=== PATIENT | male | born 1965 | race Caucasian/White ===

== ENCOUNTER 2021-05-05 10:06 | Outpatient (REF) | payer BC, SELFPAY ==
[2021-05-05 11:51] LABS: Alanine Aminotransferase 22 U/L (0-40); Albumin Level 4.2 g/dL (3.5-5.0); Alkaline Phosphatase 77 U/L (39-117); Anion Gap 17 (12-20); Aspartate Amino Transferase 36 U/L (5-37); Bilirubin Total 0.5 mg/dL (0.0-1.0); Blood Urea Nitrogen 10 mg/dL (9-16); Calcium 9.4 mg/dL (8.4-10.2); Carbon Dioxide 21 mmol/L (22-29); Chloride 106 mmol/L (96-108); Cholesterol 194 mg/dL; Estimated Glomerular Filt Rate > 60; Glucose Fasting 81 mg/dL (60-99); HDL Cholesterol 84 mg/dL; LDL Cholesterol Calculated 97 mg/dl; Potassium 4.6 mmol/L (3.3-5.1); Sodium 139 mmol/L (135-145); Total Protein 7.5 g/dL (6.5-8.0); Triglycerides 68 mg/dL
[2021-05-05 12:13] LABS: Prostate Specific Antigen Scr 1.75 ng/mL (<0.05-4.0); TSH reflex Free T4 1.29 uIU/mL (0.32-4.0)
== END 2021-05-05 10:07 | disposition home or self-care (01) ==
LOC: HO.HMGCLDS 10:06
PROVIDERS: PCP Nurse Practitioner Family; Visit Provider Nurse Practitioner Family
DX: S84.10XA Injury of peroneal nerve at lower leg level, unspecified leg, initial encounter (principal); Z12.5 Encounter for screening for malignant neoplasm of prostate
CPT/HCPCS: 36415; 80053; 80061; 84153; 84443

== ENCOUNTER 2021-11-17 10:42 | Outpatient (REF) | payer BC, SELFPAY ==
[2021-11-17 14:24] LABS: Alanine Aminotransferase 18 U/L (0-40); Albumin Level 4.2 g/dL (3.5-5.0); Alkaline Phosphatase 62 U/L (39-117); Anion Gap 14 (12-20); Aspartate Amino Transferase 25 U/L (5-37); Bilirubin Total 0.3 mg/dL (0.0-1.0); Blood Urea Nitrogen 11 mg/dL (9-16); Calcium 9.3 mg/dL (8.4-10.2); Carbon Dioxide 25 mmol/L (22-29); Chloride 104 mmol/L (96-108); Estimated Glomerular Filt Rate > 60; Glucose Random 85 mg/dL (60-115); Potassium 3.8 mmol/L (3.3-5.1); Sodium 139 mmol/L (135-145); Total Protein 7.5 g/dL (6.5-8.0)
== END 2021-11-17 10:43 | disposition home or self-care (01) ==
LOC: HO.HMGCLDS 10:42
PROVIDERS: PCP Nurse Practitioner Family; Visit Provider Nurse Practitioner Family
DX: R10.31 Right lower quadrant pain (principal)
CPT/HCPCS: 36415; 80053

== ENCOUNTER 2021-12-13 07:13 | Outpatient (REF) | payer BC, SELFPAY ==
--- NOTE | ~2021-12-13 | CT_ITS ---
EXAMINATION: CT ABDOMEN AND PELVIS WITH CONTRAST CLINICAL INFORMATION: Right lower quadrant pain COMPARISON: None TECHNIQUE: Multidetector volumetric images were obtained from the superior aspect of the liver through the pubic symphysis following administration 85 mL of Omnipaque 350 intravenous contrast. Sagittal and coronal reformatted images were obtained on the technologist's workstation. Oral contrast: Yes This CT examination was performed using dose optimization techniques as appropriate, variously including the following: *Automated exposure control *Adjustment of mA and/or kV according to patient size (this includes techniques or standardized protocols for targeted exams where dose is matched to indication/reason for exam; i.e. extremities or head) *Use of iterative reconstruction technique DLP: 330 mGy-cm FINDINGS: LUNG BASES: There are emphysematous changes at the lung bases. LIVER, GALLBLADDER, AND BILIARY TREE: The liver is normal in size, shape, and attenuation. No focal hepatic lesion or biliary ductal dilatation is present. The gallbladder is unremarkable with no evidence of radiopaque gallstones, gallbladder wall thickening, or obvious pericholecystic inflammatory changes. PANCREAS: Unremarkable. SPLEEN: Unremarkable. ADRENAL GLANDS: Unremarkable. KIDNEYS AND URETERS: The kidneys are normal in size, shape, and attenuation. No hydronephrosis, hydroureter, or calculi seen. No perinephric stranding. BLADDER: Unremarkable. GASTROINTESTINAL TRACT: There is stool throughout the colon questionable for constipation. There is mild diverticulosis of the colon. No evidence of diverticulitis is seen. Small and large bowel is otherwise unremarkable. The appendix is normal. ABDOMINAL WALL: Small right inguinal hernia containing fat.. LYMPH NODES: Normal. VASCULAR: There is atherosclerotic disease. There is a left common iliac artery stent. PELVIC VISCERA: Unremarkable. OSSEOUS STRUCTURES: There are degenerative changes of the spine and mild scoliosis. CT/CT abdomen pelvis w con IMPRESSION: Stool throughout the colon questionable for constipation. Diverticulosis. No evidence of diverticulitis. Normal appendix. Small right inguinal hernia containing fat. Fleischner guidelines were followed.
[2021-12-13] MEDS: iohexoL 350 MG/ML 100 ML INFUS..BTL IV (09:54)
[2021-12-13] MEDS: Barium Sulfate Oral (Vanilla) 450 ML ORAL.SUSP 900 ML PO (09:54)
== END 2021-12-13 07:14 | disposition home or self-care (01) ==
LOC: HO.CT 07:13
PROVIDERS: PCP Nurse Practitioner Family; Visit Provider Nurse Practitioner Family
DX: R10.31 Right lower quadrant pain (principal)
CPT/HCPCS: 74177; Q9967

== ENCOUNTER → 2021-12-15 10:07 | Outpatient (BNVA) | payer BC, SELFPAY | PROVIDERS: PCP Nurse Practitioner Family; Referring Provider Nurse Practitioner Family; Visit Provider Surgery ==

== ENCOUNTER 2022-01-08 06:56 | Day surgery (SDC) | payer BC, SELFPAY ==
[2022-01-08] VITALS (8 sets, daily range): BP systolic 115–144; BP diastolic 63–81; PULSE 60–73; RESP 16–20; TEMP 36.4–36.6; O2SAT 94–97; BMI 27.1
--- NOTE | 2022-01-08 08:01 | P.CONAN_ITS ---
[facility] Active Problems Active Problems: All Active Problems (Updated 01/08/22 @ 07:06 by Leonor Leslie RN) Peroneal nerve injury (Acute) Screening PSA (prostate specific antigen) (Acute) Right inguinal hernia (Acute) Right inguinal pain (Acute) Family hx of colon cancer (Acute) Past Medical History Medical History Claudication History of neuropathy HTN (hypertension) Nerve damage of left foot Smoker Stenosis of artery of left lower extremity Family History Family History Father Hypertension Lung cancer Mother No problems noted. Surgical History Surgical History Hx of colonoscopy S/P arterial stent History of Problems with Anesthesia: No Social History Social History Housing: House Alcohol intake: current Alcohol intake frequency: a few times a week Patient Tobacco Use Status: Current everyday Tobacco user Tobacco use type: Cigarette Cigarette Packs Per Day: 1 Cigarettes Per Day: 20.0 Years Smoked: 16 years old e-Cigarette/Vaping Use: Never Used Use of substances other than those prescribed or required for medical reasons: Yes Substance Use Frequency: Occasionally Are you DNR?: No Advance Directives: No Advance Directives Information Provided: Yes service: No Current occupational status: employed Meds Allergies Allergy/AdvReac Type Severity Reaction Status Date / Time amoxicillin [AMOXICILLIN] Allergy Unknown ITCH, Verified 01/08/22 07:03 RASH, Rash, Rash Active Medications: Current Medications Lactated Ringer's (Lr) 1,000 mls @ 100 mls/hr IVCONT .Q10H [facility] Exam Exam Date and Time: January 08, 2022 0801 Height,Weight and Vital Signs: Height 5 ft 5 in Weight 73.936 kg Last Vital Signs Temp 97.8 F 01/08/22 06:50 Pulse 60 01/08/22 06:50 Resp 16 01/08/22 06:50 BP 144/81 H 01/08/22 06:50 Pulse Ox 97 01/08/22 06:50 Airway Mallampati Class: II TM Dist: >3cm Neck ROM: Full Loose/Missing/Broken Teeth: No Heart: RRR Lungs: CTA Assessment and Plan Assessment Anesthesia Assessment: Anesthesia Plan Discussed and Chart Reviewed Final Anesthetic Review History of Problems with Anesthesia: No NPO: Yes ASA Class: II Final Preanesthetic Review: Meds/Allgs Chart Reviewed, Consent Obtained/Reviewed and Anes Risks/Benef Reviewed Patient Risk: Low Procedure Risk: Low Anesthetic Plan Anesthetic Plan: GA Disposition: Standard PACU
[2022-01-08] MEDS: Lactated Ringers 1,000 ML 100 ML IVCONT (08:30)
--- NOTE | 2022-01-08 08:30 | MHC.SHP ---
Pre-Procedural Eval Section A Date of Service: 01/08/22 The patient is an INPATIENT: No Changes since office visit: Yes Patient answered all questions; No Cold of Flu in the past 2 weeks, No New Medical Problems and No Changes in Medication The History & Physical has been completed within 30 days and I have reviewed it.: Yes Section B Chief Complaint: Right inguinal Hernia Allergies: Allergies Allergy/AdvReac Type Severity Reaction Status Date / Time amoxicillin [AMOXICILLIN] Allergy Unknown ITCH, Verified 01/08/22 07:03 RASH, Rash, Rash Plan Diagnosis/Plan: Unchanged I have reviewed the history and physical and performed a pertinent physical examination on my patient. No changes have occurred unless specified.
--- NOTE | 2022-01-08 09:41 | P.OP_ITS ---
Operative Note Operative Note Date of Service: 01/08/22 Narrative: Preoperative diagnosis: Rightinguinal hernia Postoperative diagnosis: Same Procedure: Repair of rightinguinal hernia Surgeon: Steve Alvarez MD Certified Wellness Program Coordinator: Radha Sadler PA-C Anesthesia: General LMA Indications for procedure: 56-year-old male patient presenting with a palpable lump in the right groin which increases with lifting and straining and reduces with light pressure. On examination patient is found to have a right inguinal hernia. Operative findings:. Patient found to have a direct right inguinal hernia repaired with a large PHS mesh Specimen: None Estimated blood loss: 5 mL Complications: None Procedure details: Patient was brought to the OR and placed in a supine position. After administering general anesthesia the patient's abdomen was prepped with ChloraPrep and draped in a sterile fashion. A surgical time-out was called the consent confirmed. Patient received preoperative antibiotics and Venodyne boots were in place. Local anesthesia consisting of 0.5% Sensorcaine with epinephrine was infiltrated over the right inguinal ligament. Incision was then made in oblique fashion over the inguinal ligament. This carried out through subcutaneous tissue past Carol's fashion up to the external oblique aponeurosis. Additional local was infiltrated below the external oblique aponeurosis. This was then incised with a scalpel wide with the Metzenbaum scissors. Spermatic cord was then dissected free from the surrounding inguinal canal and retracted using a Perry drain. The floor of the inguinal canal was examined and a large direct hernia was identified. Fibers of the cremasteric muscle were then and no indirect sac was identified. Attention was then directed to the direct space which was divided between Allis clamps. The preperitoneal space was then created. This was opened further using an open Ray-Dana sponge. A large PHS mesh was then obtained. The circular underlay was placed into the preperitoneal space and deployed. The overlay was then secured to the pubic tubercle conjoined tendon shelving edge of the inguinal ligament using interrupted 0 Polysorb sutures. A slit was made in the mesh and the mesh were wrapped around the spermatic cord at the internal ring. This was then secured to the shelving edge of the inguinal ligament using the 0 Polysorb suture. This was felt to be loose enough to allow the tip of an index finger to pass. Wounds were checked for hemostasis. Wounds were irrigated with saline solution and suctioned dry. External oblique aponeurosis was then closed using a running 2 0 Polysorb suture . Carol's fascia and dermis reapproximated using interrupted 3-0 Polysorb sutures. Skin was then closed using a running subcuticular 4-0 Polysorb suture. Steri-Strips 2 x 2 gauze and Tegaderm were then applied. The patient tolerated the procedure well. Sponge, instrument, needle counts reported as correct. Patient was transferred to PACU in stable condition.
[2022-01-08] MEDS: Acetaminophen 325 MG TABLET 650 MG PO (11:24)
[2022-01-08] MEDS: oxyCODONE HCl Immed Release 5 MG TABLET PO (11:25)
== END 2022-01-08 12:01 | disposition home or self-care (01) ==
PROVIDERS: PCP Nurse Practitioner Family; Visit Provider Surgery
PROC: (CPT 49505; principal; 2022-01-08 08:40)
DX: K40.90 Unilateral inguinal hernia, without obstruction or gangrene, not specified as recurrent (principal); I10 Essential (primary) hypertension; I73.9 Peripheral vascular disease, unspecified; Z79.899 Other long term (current) drug therapy; Z88.0 Allergy status to penicillin; F17.210 Nicotine dependence, cigarettes, uncomplicated
CPT/HCPCS: 49505; C1781; J0690; J1100; J2250; J2405; J3010

== ENCOUNTER → 2022-02-15 11:12 | Outpatient (BNVA) | payer BC, SELFPAY | PROVIDERS: PCP Nurse Practitioner Family; Referring Provider Nurse Practitioner Family; Visit Provider Surgery | DX: Z13.89 Encounter for screening for other disorder (principal) ==

== ENCOUNTER → 2023-06-12 10:58 | Outpatient (REF) | payer BC, SELFPAY ==
--- NOTE | 2023-06-12 11:01 | CA_ITS ---
Transthoracic Echocardiogram Patient (Last, First, Middle): Dustin Silva, Gender: Male Date of : 1965 Age: 58 Procedure Date: 06/12/2023 Procedure Type: Transthoracic Echocardiogram Location: OP Height: 165.1 cm Weight: 65.77 kg BSA: 1.73 m2 Heart Rate: bpm BP: 122 / 70 mmHg Chart Changer: Referring MD: Steve Gaffney [facility] Biology Lecturer: Daren Villalobos MD Symptoms: I45.10 - Unspecified right bundle-branch block Study Quality: Good ECG Rhythm: Sinus Conclusions: - Normal study Findings Left Ventricle Normal left ventricular size, thickness, and systolic function. The visually estimated ejection fraction is between 60-65%. Spectral Doppler is indicative of a normal filling pattern. Peak GLS is -21.3%, within normal limits. Right Ventricle Normal right ventricular cavity size and systolic function. Atria Both atria are normal in size. There is lipomatous hypertrophy of the interatrial septum. There is no evidence of interatrial shunt. Aortic Valve Normal aortic valve structure and function. There is no aortic valve stenosis. There is no aortic valve regurgitation. Mitral Valve Normal mitral valve structure and function. There is trace mitral valve regurgitation. There is no mitral valve stenosis. Pulmonic Valve The pulmonic valve is likely normal. There is trace pulmonic valve regurgitation. Tricuspid Valve Normal tricuspid valve structure. There is trace tricuspid valve regurgitation. The right ventricular systolic pressure is normal. The right ventricular systolic pressure is 23 mmHg. Normal right atrial pressure. There is no evidence of pulmonary hypertension. Great Vessels All visible segments of the aorta are normal in size. The visualized portions of the pulmonary artery and branches are normal. Venous The inferior vena cava is normal in size and collapses greater than 50% with inspiration. Pericardium/Pleural There is no evidence of pericardial effusion. Prior Study Comparison No prior study available for comparison. Measurements 2D Linear Measurements IVSd: 1.00 0.6-0.9/0.6-1.0 cm LVIDd: 4.60 3.9-5.3/4.2-5.9 cm LVIDd Index: 2.66 2.4-3.2/2.2-3.1 cm/m2 LVIDs: 2.90 2.0-3.6 cm LVPWd: 1.00 0.7-1.1 cm Ao Root: 3.20 2.1-3.5 cm LA Diam: 3.90 2.7-3.8/3.0-4.0 cm LAIDs Index: 2.25 1.5-2.3 cm/m2 LV Mass: 197.77 67-162/88-224 g LV Mass Index: 114.32 43-95/49-115 g/m2 LVOT Diam: 2.10 3.0+(-)1.3 cm Mitral Valve MV Pk E: 1.05 MV PK A: 0.85 MV Decel Time: 165.00 E/A: 1.20 E'Lateral: 10.30 E'Medial: 7.29 E/E' Med: 14.40 E/E' Lat: 10.20 PHT: 48.00 MVA PHT: 4.58 Decel [place]: 6.35 Aortic Valve AoV Pk Ricardo: 1.46 AoV Mn Ricardo: 0.94 AoV VTI: 0.35 AoV Pk Grad: 9.00 Aov Mn Grad: 4.00 FELIPE Cont.VTI: 2.30 LVOT LVOT Pk Ricardo: 0.97 LVOT Mn Ricardo: 0.55 LVOT VTI: 0.23 LVOT Pk Grad: 4.00 LVOT Mn Grad: 2.00 LVOT Diam: 2.10 LVOT Area: 3.46 Diastolic Function MV Pk E: 1.05 MV Pk A: 0.85 E/A: 1.20 E'Medial: 7.29 E/E' Med: 14.40 E' Laterial: 10.30 E/E' Lat: 10.20 Right Ventricle TAPSE (mm): 27.00 TVS' Ricardo: 14.00 Tricuspid Valve TR Pk Ricardo: 2.25 TR Pk Grad: 20.00 RA Press: 3.00 RVSP: 23.00 Great Vessels Aorta Ao Root-2D: 3.20 2.0-3.7 cm Pulmonary Valve PV Pk Ricardo: 0.94 Peak PV Grad: 4.00 Updated in Other Vendor System with Status of Final Daren Villalobos MD electronically signed on 06/12/2023 2:06:59 PM with status of Final
== END ==
LOC: HO.CARD 10:58
PROVIDERS: PCP Nurse Practitioner Family; Visit Provider Nurse Practitioner Family
DX: I45.10 Unspecified right bundle-branch block (principal); F17.200 Nicotine dependence, unspecified, uncomplicated; R93.1 Abnormal findings on diagnostic imaging of heart and coronary circulation
CPT/HCPCS: 93306; 93356

== ENCOUNTER → 2023-06-12 11:01 | Outpatient (BNV) | payer BC, SELFPAY | PROVIDERS: PCP Nurse Practitioner Family; Visit Provider Internal Medicine Cardiovascular Disease | DX: I45.10 Unspecified right bundle-branch block (principal) | CPT/HCPCS: 93306 ==

== ENCOUNTER 2023-07-25 10:48 | Outpatient (REF) | payer BC, SELFPAY ==
[2023-07-25 13:09] LABS: MANUAL DIFF FLAG NO
[2023-07-25 13:21] LABS: Basophils Percent Auto 0.3 % (0-2); Eosinophils Absolute Auto 0.3 X10*3/uL (0.0-0.4); Eosinophils Percent Auto 3.1 % (0-4); Hematocrit 42.8 % (42.0-52.0); Hemoglobin 14.5 g/dl (14.0-18.0); Imm Gran Abs Auto 0.05 X10*3/uL (0.00-0.03); Imm Gran Pct Auto 0.5 % (0.0-0.4); Lymphocytes Absolute Auto 4.4 X10*3/uL (1.2-4.9); Lymphocytes Percent Auto 40.7 % (20-40); Mean Corpuscular HGB Conc 33.9 g/dl (31.0-36.0); Mean Corpuscular Hemoglobin 33.9 pg (27.0-33.0); Mean Platelet Volume 9.6 fL (9.4-12.4); Monocytes Absolute Auto 0.8 X10*3/uL (0.1-1.2); Monocytes Percent Auto 7.2 % (2-11); Neutrophils Absolute Auto 5.2 x10*3/uL (2.0-8.3); Neutrophils Percent Auto 48.2 % (45-73); Platelet Count 232 X10*3/uL (160-400); Red Blood Count 4.28 X10*6/uL (4.60-5.80); Red Cell Distribution Width 14.6 % (11.0-16.0); White Blood Count 10.8 X10*3/uL (4.8-10.8)
[2023-07-25 13:40] LABS: Alanine Aminotransferase 15 U/L (0-40); Alkaline Phosphatase 71 U/L (39-117); Anion Gap 15 (12-20); Aspartate Amino Transferase 23 U/L (5-37); Bilirubin Total 0.5 mg/dL (0.0-1.0); Blood Urea Nitrogen 11 mg/dL (9-16); Calcium 9.5 mg/dL (8.4-10.2); Carbon Dioxide 26 mmol/L (22-29); Chloride 103 mmol/L (96-108); Cholesterol 192 mg/dL (<200); Estimated Glomerular Filt Rate > 60; Glucose Fasting 99 mg/dL (60-99); HDL Cholesterol 79 mg/dL (>40); LDL Cholesterol Calculated 102 mg/dL (<100); Potassium 4.9 mmol/L (3.3-5.1); Sodium 139 mmol/L (135-145); Total Protein 7.8 g/dL (6.5-8.0); Triglycerides 57 mg/dL (<150)
[2023-07-25 13:48] LABS: TSH reflex Free T4 1.32 uIU/mL (0.32-4.0)
[2023-07-25 13:54] LABS: Appearance Urine Clear; Color Urine Yellow; Glucose Urine UA Negative (Negative); Leukocyte Esterase Urine Negative (Negative); Nitrite Urine Negative (Negative); PH 7.5 (5.0-9.0); Specific Gravity - Urine 1.015 (1.005-1.025); Urine Blood Negative (Negative); Urine Ketones Negative (Negative); Urine Protein Negative (Neg-Trace)
[2023-07-25 13:57] LABS: Prostate Specific Antigen Scr 1.63 ng/mL (<0.05-4.0)
== END 2023-07-25 10:49 | disposition home or self-care (01) ==
LOC: HO.HMGCLDS 10:48
PROVIDERS: PCP Nurse Practitioner Family; Visit Provider Nurse Practitioner Family
DX: Z00.00 Encounter for general adult medical examination without abnormal findings (principal); Z12.5 Encounter for screening for malignant neoplasm of prostate; I10 Essential (primary) hypertension
CPT/HCPCS: 36415; 80053; 80061; 81003; 84153; 84443; 85025

== ENCOUNTER 2023-08-30 13:48 | Outpatient (AMB) | payer BC, SELFPAY ==
--- NOTE | 2023-07-05 08:11 | A.OFFVIS_ITS ---
Intake Intake Visit Reasons: LDCT SD Allergies amoxicillin [AMOXICILLIN] Allergy (Unknown, Verified 05/08/23 11:07) ITCH, RASH, Rash, Rash HPI LDCT SD HPI Details Initial visit for this 58yo smoker with a 40PYH. Patient has been smoking since age 16 for 42 years at 1ppd. . Denies marijuana use. Denies second hand smoke exposure. Denies exposure to chemicals or substances like asbestos. . Denies known family history of lung cancer. Denies personal history of cancers. Denies chest CT in last year. . Denies recent travel outside the [place]. Denies recent respiratory illness or recent hospitalization for respiratory issues. Denies testing positive for COVID. Admits receiving COVID Vaccine. Brand:[] Location: [] Date: [] . Denies fever, chills, new/worsening cough, hemoptysis, hoarseness or dysphagia. Denies significant chest pain, significant dyspnea or unintentional weight loss. Patient Lung Cancer Screening Questionnaire reviewed with patient by provider. . Shared Decision Making Completed. Patient meets criteria. Discussed in detail with patient, the risk vs benefit of LDCT screening. Patient consents to proceed with scan. Discussed smoking cessation. [facility] Medical History (Updated 06/07/23 @ 12:08 by Diana Diaz PA-C) Claudication History of neuropathy HTN (hypertension) Nerve damage of left foot Nicotine dependence, cigarettes, uncomplicated Stenosis of artery of left lower extremity Tubular adenoma of colon Surgical History (Updated 06/06/23 @ 14:03 by Diana Diaz PA-C) History of colonoscopy History of right inguinal hernia repair S/P arterial stent Family History Father Hypertension Lung cancer Mother No problems noted. Social History Housing: House Alcohol intake: current Alcohol intake frequency: a few times a week Patient Tobacco Use Status: Current everyday Tobacco user Tobacco use type: Cigarette Cigarette Packs Per Day: 1 Cigarettes Per Day: 20.0 Years Smoked: 16 years old e-Cigarette/Vaping Use: Never Used service: No Current occupational status: employed Current occupational exposures/hazards: No Cognitive needs: No Hearing needs: No Vision needs: Yes Assessment & Plan Assessment & Plan (1) Nicotine dependence, cigarettes, uncomplicated: Comment: (current smoker, onset 16yo, 1ppd x 42yrs, 40pyh) ? lung ca in dad Code(s): F17.210 - Nicotine dependence, cigarettes, uncomplicated Plan: - SDM visit completed today in office. - Patient meets criteria for LDCT for lung cancer screening purposes and is asymptomatic. - Smoking cessation counseling offered. Patients can always call [phone]. - Will arrange for a LDCT scan of the chest for screening purposes at [facility]. - Risks, benefits, and alternatives were discussed in detail and the patient agrees to proceed. - Risks discussed include but are not limited to: radiation exposure, anxiety during testing and while awaiting results, false negatives, false positives and possibility of additional intervention such as further imaging or surgical procedures for benign disease. - Benefits are obviously detection of lung cancer at an early stage which can lead to improved outcomes. - Discussed the importance of screening program compliance with adherence to yearly LDCT scan as scheduled - or sooner interval scans for personalized scr eening regimen. - Discussed follow up plan. Our office will send a letter discussing results and if needed set up phone call and office visit based on CT findings. - Patient educated on results categorization and the management decisions for suspicious findings potentially found on the screening LDCT scan. Any patient with a Lung RADS score of 3 or 4 will be reviewed by a multidisciplinary team at [facility] to form a plan of action in regards to scan findings. - If further work up is warranted for a suspicious lung finding this will be followed by the Lung Cancer Screening program in conjunction with the Thoracic Surgery Department at [facility]. - A copy of the office note and LDCT will be sent to the patient's PCP - as well as documentation on any associated further plans of care. - Incidental findings on LDCT are the PCP's responsibility. These findings are indicated with an S finding on the LDCT Assessment. A note discussing the findings will be sent to the PCP who is then responsible for further management. - All questions answered.? Coding Level of Care Code Lung Cancer Screening G0296 Diagnoses Nicotine dependence, cigarettes, uncomplicated F17.210
--- NOTE | 2023-08-30 07:44 | MHC.OFFVIS ---
Intake Intake Visit Reasons: LDCT SD Allergies amoxicillin [AMOXICILLIN] Allergy (Unknown, Verified 05/08/23 11:07) ITCH, RASH, Rash, Rash HPI LDCT SD HPI Details Initial visit for this 58yo smoker with a 40PYH. Patient has been smoking since age 16 for 42 years at 1ppd. . Reports social marijuana use. Denies second hand smoke exposure. Denies exposure to chemicals or substances like asbestos. . Reports family history of lung cancer. Dad at 82 and brother at 67. Denies personal history of cancers. Denies chest CT in last year. . Denies recent travel outside the [place]. Denies recent respiratory illness or recent hospitalization for respiratory issues. Denies testing positive for COVID. Denies receiving COVID Vaccine. . Denies fever, chills, new/worsening cough, hemoptysis, hoarseness or dysphagia. Denies significant chest pain, significant dyspnea or unintentional weight loss. Patient Lung Cancer Screening Questionnaire reviewed with patient by provider. . Shared Decision Making Completed. Patient meets criteria. Discussed in detail with patient, the risk vs benefit of LDCT screening. Patient consents to proceed with scan. Discussed smoking cessation. 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 Brother Lung cancer Social History Housing: House Alcohol intake: current Alcohol intake frequency: a few times a week Patient Tobacco Use Status: Current everyday Tobacco user Tobacco use type: Cigarette Cigarette Packs Per Day: 1 Cigarettes Per Day: 20.0 Years Smoked: onset 16yo, 1ppd x 42yrs, 40pyh e-Cigarette/Vaping Use: Never Used service: No Current occupational status: employed Current occupational exposures/hazards: No Cognitive needs: No Hearing needs: No Vision needs: Yes Assessment & Plan Assessment & Plan (1) Nicotine dependence, cigarettes, uncomplicated: Comment: (current smoker, onset 16yo, 1ppd x 42yrs, 40pyh, + fam hx lung ca in dad/brother) Code(s): F17.210 - Nicotine dependence, cigarettes, uncomplicated Plan: - SDM visit completed today in office. - Patient meets criteria for LDCT for lung cancer screening purposes and is asymptomatic. - Smoking cessation counseling offered. Patients can always call [phone]. - Will arrange for a LDCT scan of the chest for screening purposes at [facility]. - Risks, benefits, and alternatives were discussed in detail and the patient agrees to proceed. - Risks discussed include but are not limited to: radiation exposure, anxiety during testing and while awaiting results, false negatives, false positives and possibility of additional intervention such as further imaging or surgical procedures for benign disease. - Benefits are obviously detection of lung cancer at an early stage which can lead to improved outcomes. - Discussed the importance of screening program compliance with adherence to yearly LDCT scan as scheduled - or sooner interval scans for personalized screening regimen. - Discussed follow up plan. Our office will send a letter discussing results and if needed set up phone call and office visit based on CT findings. - Patient educated on results categorization and the management decisions for suspicious findings potentially found on the screening LDCT scan. Any patient with a Lung RADS score of 3 or 4 will be reviewed by a multidisciplinary team at [facility] to form a plan of action in regards to scan findings. - If further work up is warranted for a suspicious lung finding this will be followed by the Lung Cancer Screening program in conjunction with the Thoracic Surgery Department at [facility]. - A copy of the office note and LDCT will be sent to the patient's PCP - as well as documentation on any associated further plans of care. - Incidental findings on LDCT are the PCP's responsibility. These findings are indicated with an S finding on the LDCT Assessment. A note discussing the findings will be sent to the PCP who is then responsible for further management. - All questions answered.? Coding Level of Care Code Lung Cancer Screening G0296 Diagnoses Nicotine dependence, cigarettes, uncomplicated F17.210
== END 2023-08-30 15:30 | disposition home or self-care (01) ==
LOC: HO.HMS 13:48
PROVIDERS: PCP Nurse Practitioner Family; Visit Provider Physician Assistant Medical
DX: F17.210 Nicotine dependence, cigarettes, uncomplicated (principal)
CPT/HCPCS: G0296

== ENCOUNTER 2023-08-30 14:05 | Outpatient (REF) | payer BC, SELFPAY ==
--- NOTE | ~2023-08-30 | CT_ITS ---
EXAMINATION: CT CHEST SCREENING CLINICAL INFORMATION: Current smoker. 43 pack year history COMPARISON: None available. TECHNIQUE: Multidetector volumetric CT imaging of the chest is performed without contrast using low dose technique. Additional 2D coronal and sagittal reformatted images and axial 3D maximum intensity projection (MIP) images are generated on the CT workstation. This CT examination was performed using dose optimization techniques as appropriate, variously including the following: *Automated exposure control *Adjustment of mA and/or kV according to patient size (this includes techniques or standardized protocols for targeted exams where dose is matched to indication/reason for exam; i.e. extremities or head) *Use of iterative reconstruction technique DLP: 51 mGy-cm FINDINGS: LUNGS: There is evidence of mild emphysema. There is a linear parenchymal density probably representing scarring or subsegmental atelectasis in the anterior segment of the right upper lobe for example axial image 108 series 5. There is focal bronchiectasis and scarring in the right upper lobe axial image 213 series 5. There is a 5 mm peripheral or subpleural right upper lobe nodule adjacent to the minor fissure axial image 282 series 5. There are scattered areas of increased peripheral reticular markings and increased peripheral attenuation questionable for interstitial lung disease. No endobronchial or endotracheal lesion. MEDIASTINUM: The mediastinum is normal. CORONARY ARTERY CALCIFICATION: Moderate PLEURA: There is no pleural effusion. No pleural mass or thickening. AXILLA: No lymphadenopathy. UPPER ABDOMEN: Unremarkable OSSEOUS STRUCTURES: Degenerative changes of the spine and right shoulder CT/CT lung screening IMPRESSION: Emphysema. Question mild interstitial lung disease. Small pulmonary nodules. Focal bronchiectasis and scarring in the right upper lobe. ASSESSMENT: Lung-RADS category 2: Benign RECOMMENDATION: Annual low-dose chest CT follow-up recommended
== END 2023-08-30 14:06 | disposition home or self-care (01) ==
LOC: HO.CT 14:05
PROVIDERS: PCP Nurse Practitioner Family; Visit Provider Physician Assistant Medical
DX: Z12.2 Encounter for screening for malignant neoplasm of respiratory organs (principal); F17.210 Nicotine dependence, cigarettes, uncomplicated
CPT/HCPCS: 71271; G0296

== ENCOUNTER 2024-01-24 10:32 | Outpatient (AMB) | payer BC, SELFPAY ==
[2024-01-24 10:37] VITALS: BP 129/66; PULSE 74; BMI 25.2
--- NOTE | 2024-01-24 10:37 | MHC.OFFVIS ---
Intake Vital Signs 01/24/24 10:37 Height 5 ft 5 in Weight 151 lb 10.848 oz BMI 25.2 BP 129/66 Blood Pressure Location Lt brachial Position Sitting Pulse 74 Intake Visit Reasons: Colonoscopy Screening Intake Note: New patient in office today for colonoscopy screening. CC: Pt last colonoscopy with Dr. Vazquez on 07/09/2019. He denies having any GI symptoms today. [employer] Office Required: No Accompanied by: Self / Same As Patient Allergies amoxicillin [AMOXICILLIN] Allergy (Unknown, Verified 01/24/24 10:41) ITCH, RASH, Rash, Rash HPI Colonoscopy Screening HPI Details 58-year-old male here for preprocedural meeting to discuss a screening colonoscopy. He is referred by Steve Gaffney of [facility] primary care. PMX Hypertension Right bundle branch block Left lower extremity stenosis Nerve damage left foot Smoker Macrocytic anemia Tubular adenoma Family history of colon cancer * SURGICAL HISTORY COLONOSCOPY-2018 [facility] ILIAC ARTERY STENT RIGHT INGUINAL HERNIA REPAIR * ALLERGIES Amoxicillin * [employer] LABS: None since July of 2023 so will need to repeat the labs PROCEDURE IN DETAIL: Digital rectal exam revealed prostate to be unremarkable. Video colonoscope was introduced without difficulty. It was navigated into the rectosigmoid, sigmoid. There was residual sticky mucoid stool, difficult to flush coating various areas of the colon throughout the entire procedure. The scope was slowly advanced through the sigmoid and descending colon. There were scattered diverticula present. Scope was able to be passed through transverse and ascending colon down into the cecal cap. Appendiceal orifice was seen. Ileocecal valve was seen. Intense flushing was done. There were still areas that were not well visualized as I withdrew the scope, however, we did identify diminutive polyp in the transverse colon that was removed excisionally with cold biopsy forceps. No additional lesions were seen. Anorectal verge was clear. IMPRESSION: Diminutive polyp, diverticulosis, strong family history of colon cancer. CURRENT RECOMMENDATIONS: Repeat asymptomatic screening in this patient will be 3 years due to the marginal prep and strong family history. I would advise FIP testing in 1 year to further clarify his risk factors. DIAGNOSIS Colon, transverse, polyp, polypectom y: Tubular adenom a. TODAY'S VISIT He had not problem with the prep and did not have anything solid to eat despite suboptimal prep last procedure. I will include bisacodyl to help. He also really disliked the taste of the Suprep so we will use Go lytely. There are no prior problems with anesthesia or sedation. He denies any cardiac or respiratory problems. No ID problems. 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 Brother Lung cancer Social History Housing: House Alcohol intake: current Alcohol intake frequency: a few times a week Patient Tobacco Use Status: Current everyday Tobacco user Tobacco use type: Cigarette Cigarette Packs Per Day: 1 Cigarettes Per Day: 20.0 Years Smoked: onset 16yo, 1ppd x 42yrs, 40pyh e-Cigarette/Vaping Use: Never Used service: No Current occupational status: employed Current occupational exposures/hazards: No Cognitive needs: No Hearing needs: No Vision needs: Yes Review of Systems Const Denies fatigue, Denies fever(s), Denies night sweats, Denies poor appetite and Denies weight loss ENT Reports Normal hearing present, Denies dental pain, Denies dysphagia, Denies hearing loss, Denies mouth pain, Denies odynophagia, Denies throat swelling, Denies tongue swelling and Reports other (Dentition adequate) Card Reports no additional complaints Resp Reports no additional complaints GI Details: Denies abdominal pain, Denies melena, Denies bloating, Denies hematochezia, Denies constipation, Denies GI cramping, Denies dysphagia, Denies excessive flatus, Denies early satiety, Denies heartburn, Denies diarrhea, Denies nausea, Denies odynophagia, Denies vomiting and Denies hematemesis Skin/Breast Denies pruritus, Denies lesions, Denies rash and Denies jaundice Neuro Reports Normal hearing present and Denies Abnormal speech present Endo Denies fatigue Aller/Immun Denies throat swelling and Denies tongue swelling Physical Exam Vital Signs: Last Vital Signs Pulse 74 01/24/24 10:37 BP 129/66 01/24/24 10:37 BMI result Body Mass Index 25.2 Const General: cooperative, no acute distress, well developed and well groomed Nutritional Appearance: average body habitus and well nourished Orientation/consciousness: oriented to person, oriented to place and oriented to time Limitations: No language barrier HEENT Head: Yes normocephalic and Yes atraumatic Eyes General: appearance normal, both eyes and all related structures Pupils: Equal, round and reactive pupils present Neck Neck: Yes normal visual inspection and Yes no lymphadenopathy Thyroid: Thyroid normal Resp Effort & Inspection: normal respiratory effort and able to speak in complete sentences Auscultation: clear to auscultation bilaterally Cardio Rate: regular rate Rhythm: regular rhythm Heart sounds: Normal, physiologic split S2 sound present Peripheral pulses: radial pulses present and posterior tibial pulses present GI Inspection: No distended, No Abdominal panniculus present and Yes obesity Palpation (GI): Soft to palpation, nontender, no guarding, not rigid and No hepatosplenomegaly present Percussion: Yes normal to percussion Auscultation: normal bowel sounds Rectal Exam - Male: Yes deferred Skin General skin exam: no rashes or lesions noted, turgor normal, skin not dry, no jaundice, No spider nevi and no striae Rashes: no rashes Nails: normal Neuro General: oriented to person, oriented to place and oriented to time Cranial nerves: Yes Equal, round and reactive pupils present and Yes Normal hearing present Speech: No Abnormal speech present Extrem General: Yes normal to inspection, No clubbing, No cyanosis and No edema Psych Appearance: grossly normal and well kempt Mental Status: mental status grossly normal Speech and movement: Normal speech and movement present Affect: normal affect Attitude: cooperative Thought process: Normal thought process present and not confabulating Thought content: Normal thought content present Insight: Fair insight present (Psych) Judgement: Fair judgement present (Psych) Assessment & Plan Assessment & Plan (1) Tubular adenoma of colon: Comment: (TA on 2019 scope) Code(s): D12.6 - Benign neoplasm of colon, unspecified (2) Pre-op examination: Code(s): Z01.818 - Encounter for other preprocedural examination (3) Family hx of colon cancer: Code(s): Z80.0 - Family history of malignant neoplasm of digestive organs Plan He had not problem with the prep and did not have anything solid to eat despite suboptimal prep last procedure. I will include bisacodyl to help. He also really disliked the taste of the Suprep so we will use Go lytely. There are no prior problems with anesthesia or sedation. He denies any cardiac or respiratory problems. No ID problems. 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 Orders: Orders Comprehensive Met. Panel 01/24/24 D12.6 - Benign neoplasm of colon, unspecified, Z01.818 - Encounter for other preprocedural examination, Z80.0 - Family history of malignant neoplasm of digestive organs Complete Blood Count Auto Diff 01/24/24 D12.6 - Benign neoplasm of colon, unspecified, Z01.818 - Encounter for other preprocedural examination, Z80.0 - Family history of malignant neoplasm of digestive organs Colonoscopy - GI Use Only 01/24/24 D12.6 - Benign neoplasm of colon, unspecified, Z01.818 - Encounter for other preprocedural examination, Z80.0 - Family history of malignant neoplasm of digestive organs Medications: New bisacodyl (Dulcolax (bisacodyl)) 10 mg (2 x 5 mg) PO BEDTIME 2 days 4 tabs 0RF peg 3350-electrolytes 236-22.74-6.74 -5.86 gram (Golytely) until fecal effluent is clear; do not exceed a total volume of 2,000 mL 240 mL PO Q10M 1 day 4,000 mL 0RF Z12.11 - Encounter for screening for malignant neoplasm of colon Coding Level of Care Code New Pt Level 3 (57764) Diagnoses Tubular adenoma of colon D12.6 Pre-op examination Z01.818 Family hx of colon cancer Z80.0
== END 2024-01-24 11:01 | disposition home or self-care (01) ==
PROVIDERS: PCP Nurse Practitioner Family; Visit Provider Nurse Practitioner
DX: D12.6 Benign neoplasm of colon, unspecified (principal); Z01.818 Encounter for other preprocedural examination; Z80.0 Family history of malignant neoplasm of digestive organs
CPT/HCPCS: 99203

== ENCOUNTER → 2024-01-24 10:32 | Outpatient (BNVA) | payer BC, SELFPAY | PROVIDERS: PCP Nurse Practitioner Family; Visit Provider Nurse Practitioner ==

== ENCOUNTER 2024-05-13 10:52 | Outpatient (AMB) | payer BC, SELFPAY ==
--- NOTE | 2024-05-13 10:54 | A.OFFPC_ITS ---
Vital Signs 05/13/24 10:56 Height 5 ft 5 in Weight 144 lb BMI 24.0 BP 118/70 Blood Pressure Location Rt brachial Position Sitting Pulse 62 Pulse Source Pulse Oximeter Pulse Oximetry (%) 98 Oxygen Delivery Method Room Air Intake Visit Reasons: PE Intake Note: Patient here for physical exam. Colon: due next month and has appt booked. Allergies amoxicillin [AMOXICILLIN] Allergy (Unknown, Verified 05/13/24 10:57) ITCH, RASH, Rash, Rash Medication List - Last Reconciled 05/13/24 by MICA Sommers amlodipine 10 mg PO DAILY atenolol 50 mg PO DAILY 90 days bisacodyl (Dulcolax (bisacodyl)) 10 mg (2 x 5 mg) PO BEDTIME 2 days gabapentin 600 mg PO TID 30 days lisinopril 10 mg PO DAILY peg 3350-electrolytes 236-22.74-6.74 -5.86 gram (Golytely) 240 mL PO Q10M 1 day Tobacco use date assessed: 05/13/24 Dental Screening Dental Screen Date: 05/13/24 Did you have a dental visit in the last 12 months?: No Did you have a dental problem in the last 6 months where you did not have access to dental care?: No Was dental information given to patient?: No HPI PE HPI Details Pt is here for a PE. Will order labs. Colon screen is scheduled. PSA is up to date. Pt is part of the low-dose CT program. Pt c/o ongoing chronic right shoulder pain. He had an injury in his 20s and now has worsening pain with the slightest movement. He reports severe pain with the slightest movement. Will order MRI and refer to ortho. Pt has extensive varicose veins to his BLE. He has seen vascular in the past, will place referral. 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 Brother Lung cancer Social History Housing: House Alcohol intake: current Alcohol intake frequency: a few times a week Patient Tobacco Use Status: Current everyday Tobacco user Tobacco use type: Cigarette Cigarette Packs Per Day: 1 Cigarettes Per Day: 20.0 Years Smoked: onset 16yo, 1ppd x 42yrs, 40pyh e-Cigarette/Vaping Use: Never Used service: No Current occupational status: employed Current occupational exposures/hazards: No Cognitive needs: No Hearing needs: No Vision needs: Yes Questionnaire PHQ-9 Over the last 2 weeks, how often have you been bothered by any of the following problems? 1. Little interest or pleasure in doing things: not at all 2. Feeling down, depressed, or hopeless: not at all 3. Trouble falling or staying asleep, or sleeping too much: several days 4. Feeling tired or having little energy: not at all 5. Poor appetite or overeating: not at all 6. Feeling bad about yourself - or that you are a failure or have let yourself or your family down: not at all 7. Trouble concentrating on things, such as reading the newspaper or watching television: not at all 8. Moving or speaking so slowly that other people could have noticed. Or the opposite - being so fidgety or restless that you have been moving around a lot more than usual: not at all 9. Thoughts that you would be better off or of hurting yourself in some way: not at all Total score: 1 Depression Screening Interpretation: Negative Depression Screening Done: Yes 69543 - PHQ-9 Billing: Yes Source: Developed by Drs. Eber Kumar, Ruth Ahn, Jose Francisco Strauss and colleagues, with an educational ralph from [employer]. Thrive Questionnaire Date Thrive assessed: 05/13/24 I am a: Patient What is your living situation today?: I have a steady place to live Within the past 12 months, did the food you bought not last and you didn't have the money to get more?: Never true Within the past 12 months, did you worry whether your food would run out before you got money to buy more?: Never true Do you have trouble paying for medicines?: No Do you have trouble getting transportation to medical appointments?: No Do you have trouble paying your heating and electricity bill?: No Do you have trouble taking care of your child, family member or friend?: No Do you have trouble with day-to-day activities such as bathing, preparing meals, shopping, managing finances, etc.?: No Are you currently unemployed and looking for a job?: No Are you interested in more education?: No Currently or been in a relationship where the following occur: I choose not to answer THRIVE Score: 0 AUDIT C Alcohol Use Questionnaire (AUDIT-C) 1. How often do you have a drink containing alcohol?: 2-3 times a week 2. How many drinks containing alcohol do you have on a typical day when you are drinking?: 1 or 2 3. How often do you have six or more drinks on one occasion?: Never Total Score: 3 Score Reviewed/Action Taken: No CHAUNCEY-7 AMB Questionnaire CHAUNCEY-7 Date CHAUNCEY - 7 assessed: 05/13/24 Feeling nervous, anxious, or on edge: 0 = Not at all Not being able to stop or control worryin = Not at all Worrying too much about different things: 0 = Not at all Trouble relaxin = Not at all Being so restless that it is hard to sit still: 0 = Not at all Becoming easily annoyed or irritable: 0 = Not at all Feeling afraid as if something awful might happen: 0 = Not at all Total CHAUNCEY-7 score (0-4 normal; 5-9 mild; 10-14 moderate; 15-21 severe): 0 Source: Developed by Drs. Eber Kumar, Ruth Ahn, Jose Francisco Strauss and colleagues, with an educational ralph from [employer]. CHAUNCEY-7 Assessment Billing CHAUNCEY-7 Assessment Tool: CHAUNCEY-7 Assessment 24763 Review of Systems Const Denies chills and Denies fever(s) Eyes Denies blurry vision ENT Denies vertigo, Denies dizziness and Denies sore throat Card Denies chest pain at rest, Denies chest pain with activity, Denies diaphoresis, Denies dyspnea and Denies dyspnea on exertion Resp Denies cough, Denies dyspnea, Denies dyspnea on exertion and Denies wheezing GI Denies abdominal pain, Denies melena, Denies hematochezia, Denies constipation, Denies diarrhea and Denies loose stools Denies hematuria Musc Denies numbness and Denies tingling Skin/Breast Denies lesions Neuro Denies vertigo, Denies dizziness, Denies numbness and Denies tingling Psych Denies anxiety, Denies depression, Denies homicidal ideation, Denies suicidal ideation and Denies other (substance abuse) Aller/Immun Denies wheezing Physical exam (Primary Care) Vital Signs: Last Vital Signs Pulse 62 05/13/24 10:56 BP 118/70 05/13/24 10:56 Pulse Ox 98 05/13/24 10:56 Oxygen Delivery Method Room Air 05/13/24 10:56 BMI result Body Mass Index 24.0 Tobacco/Smoking Status: Tobacco use Status Tobacco use date assessed 05/13/24 05/13/24 11:00 Patient Tobacco Use Status Current everyday Tobacco 05/13/24 10:56 Tobacco use type Cigarette 05/13/24 10:56 e-Cigarette/Vaping Use Never Used 05/13/24 10:56 Depression Screening Interpretation: Negative Currently or been in a relationship where the following occur: I choose not to answer Const General: cooperative Nutritional Appearance: well nourished Orientation/consciousness: patient oriented x3 HENMT Head: Yes normal to inspection, Yes normocephalic and Yes atraumatic Ears: TM's normal bilaterally Eyes General: appearance normal, both eyes and all related structures Alignment and Position: alignment normal and position normal Neck Neck: Yes normal visual inspection and Yes no lymphadenopathy Thyroid: Thyroid normal Resp Effort & Inspection: normal respiratory effort Auscultation: clear to auscultation bilaterally Cardio Rate: regular rate Rhythm: regular rhythm Heart sounds: S1 normal heart sound present, S2 normal heart sound present and no murmurs GI Palpation (GI): Soft to palpation and nontender Auscultation: normal bowel sounds Male General Exam: Yes normal external exam Penis: normal penis Scrotum: scrotum normal, testes descended bilaterally and no inguinal hernias Testes: no testicular mass Skin Rashes: no rashes Neuro General: patient oriented x3, moves all extremities, no focal motor deficits and deep tendon reflexes 2+ bilaterally Romberg Test: Negative Extrem Other: right shoulder: + fish, + neers, + jobes, + drop arm test difficulty with slightest movement of RUE, very limited mobility of RUE, extensive varicose veins to BLE ranging in size Psych Appearance: grossly normal Mental Status: mental status grossly normal Speech and movement: Normal speech and movement present Affect: normal affect Attitude: cooperative Thought process: Normal thought process present Thought content: Normal thought content present Insight: Good insight present (Psych) Judgement: Good judgement present (Psych) Assessment and Plan Assessment & Plan (1) Right shoulder pain: Code(s): M25.511 - Pain in right shoulder Plan: MRI ordered, referring to ortho (2) Varicose veins of both lower extremities: Code(s): I83.93 - Asymptomatic varicose veins of bilateral lower extremities Plan: referred to vascular (3) Encounter for routine adult physical exam with abnormal findings: Code(s): Z00.01 - Encounter for general adult medical examination with abnormal findings Plan The patient agreed to the use of a emergency medicine medical director for this encounter. Scribed for MICA Avalos by Marianna Acuna emergency medicine medical director, on 05/13/2024 at 11:10 EST. Orders: Orders Complete Blood Count Auto Diff Today Z00.00 - Encounter for general adult medical examination without abnormal findings UA CC w/rflx Micro + Cult Today Z00.00 - Encounter for general adult medical examination without abnormal findings Lipid Panel Today Z00.00 - Encounter for general adult medical examination without abnormal findings Comprehensive [place] Point. Panel Fast Today Z00.00 - Encounter for general adult medical examination without abnormal findings TSH reflex Free T4 Today Z00.00 - Encounter for general adult medical examination without abnormal findings Prostate Specific Antigen Scr Today Z12.5 - Encounter for screening for malignant neoplasm of prostate MR shoulder RT wo con Today M25.511 - Pain in right shoulder Referrals Orthopedics Referral M25.511 - Pain in right shoulder Vascular Surgery Referral I83.93 - Asymptomatic varicose veins of bilateral lower extremities Coding Level of Care Code Est Pt Level 3 (70744) Est Pt Prev Care 40-64y(64097) Diagnoses Right shoulder pain M25.511 Varicose veins of both lower extremities I83.93 Encounter for routine adult physical exam with abnormal findings Z00.01 Additional Codes CHAUNCEY-7 Assessment Billing - CHAUNCEY-7 Assessment Tool: CHAUNCEY-7 Assessment 10273 ([id number])
[2024-05-13 10:56] VITALS: BP 118/70; PULSE 62; O2SAT 98; BMI 24.0
== END 2024-05-13 17:23 | disposition home or self-care (01) ==
PROVIDERS: PCP Nurse Practitioner Family; Visit Provider Nurse Practitioner Family
DX: Z00.00 Encounter for general adult medical examination without abnormal findings (principal); M25.511 Pain in right shoulder; I83.93 Asymptomatic varicose veins of bilateral lower extremities
CPT/HCPCS: 99396

== ENCOUNTER 2024-05-29 10:00 | Outpatient (REF) | payer BC, SELFPAY ==
[2024-05-29 13:07] LABS: MANUAL DIFF FLAG NO
[2024-05-29 13:12] LABS: Basophils Percent Auto 0.3 % (0-2); Eosinophils Absolute Auto 0.4 X10*3/uL (0.0-0.4); Eosinophils Percent Auto 4.2 % (0-4); Hematocrit 42.7 % (42.0-52.0); Hemoglobin 14.7 g/dl (14.0-18.0); Imm Gran Abs Auto 0.03 X10*3/uL (0.00-0.03); Imm Gran Pct Auto 0.3 % (0.0-0.4); Lymphocytes Absolute Auto 2.6 X10*3/uL (1.2-4.9); Lymphocytes Percent Auto 29.9 % (20-40); Mean Corpuscular HGB Conc 34.4 g/dl (31.0-36.0); Mean Corpuscular Hemoglobin 35.3 pg (27.0-33.0); Mean Corpuscular Volume 102.4 fL (80.0-98.0); Monocytes Absolute Auto 0.7 X10*3/uL (0.1-1.2); Monocytes Percent Auto 8.6 % (2-11); Neutrophils Absolute Auto 4.9 x10*3/uL (2.0-8.3); Neutrophils Percent Auto 56.7 % (45-73); Platelet Count 211 X10*3/uL (160-400); Red Blood Count 4.17 X10*6/uL (4.60-5.80); Red Cell Distribution Width 13.7 % (11.0-16.0); White Blood Count 8.7 X10*3/uL (4.8-10.8)
[2024-05-29 13:16] LABS: Appearance Urine Turbid; Color Urine Dark Yellow; Glucose Urine UA Negative (Negative); Leukocyte Esterase Urine Trace (Negative); Nitrite Urine Negative (Negative); PH 5.5 (5.0-9.0); Specific Gravity - Urine 1.025 (1.005-1.025); UMIC TRIGGER UACC YES; Urine Blood Negative (Negative); Urine Ketones 15 mg/dL (Negative); Urine Protein 30 (1+) mg/dL (Neg-Trace)
[2024-05-29 13:22] LABS: Bacteria Urine None Seen (None Seen); Hyaline Casts Urine 0-2 /LPF (0-2); RBC Urine 0-2 /HPF (0-2); Squamous Epithelial Cell Urine 0-2 /HPF (0-2); WBC Urine 0-5 /HPF (0-5)
[2024-05-29 13:23] LABS: Alanine Aminotransferase 12 U/L (0-40); Albumin Level 3.9 g/dL (3.5-5.0); Alkaline Phosphatase 68 U/L (39-117); Anion Gap 13 (12-20); Aspartate Amino Transferase 23 U/L (5-37); Bilirubin Total 0.7 mg/dL (0.0-1.0); Blood Urea Nitrogen 11 mg/dL (9-16); Calcium 8.8 mg/dL (8.4-10.2); Carbon Dioxide 24 mmol/L (22-29); Chloride 105 mmol/L (96-108); Cholesterol 176 mg/dL (<200); Estimated Glomerular Filt Rate > 60; Glucose Fasting 86 mg/dL (60-99); Glucose Random 85 mg/dL (60-115); HDL Cholesterol 69 mg/dL (>40); LDL Cholesterol Calculated 93 mg/dL (<100); Sodium 138 mmol/L (135-145); Total Protein 7.2 g/dL (6.5-8.0); Triglycerides 73 mg/dL (<150)
[2024-05-29 13:46] LABS: TSH reflex Free T4 1.03 uIU/mL (0.32-4.0)
== END 2024-05-29 10:01 | disposition home or self-care (01) ==
LOC: HO.HMGCLDS 10:00
PROVIDERS: PCP Nurse Practitioner Family; Referring Provider Nurse Practitioner; Visit Provider Nurse Practitioner Family
DX: Z00.00 Encounter for general adult medical examination without abnormal findings (principal); D12.6 Benign neoplasm of colon, unspecified; Z01.818 Encounter for other preprocedural examination; Z80.0 Family history of malignant neoplasm of digestive organs; Z12.5 Encounter for screening for malignant neoplasm of prostate
CPT/HCPCS: 36415; 80053; 80061; 81001; 81003; 84153; 84443; 85025

== ENCOUNTER 2024-06-04 11:53 | Outpatient (REF) | payer BC, SELFPAY ==
[2024-06-04 14:05] LABS: Appearance Urine Clear; Color Urine Yellow; Glucose Urine UA Negative (Negative); Leukocyte Esterase Urine Trace (Negative); Nitrite Urine Negative (Negative); UMIC TRIGGER UACC YES; Urine Blood Negative (Negative); Urine Ketones Negative (Negative); Urine Protein Negative (Neg-Trace)
[2024-06-04 14:09] LABS: Bacteria Urine None Seen (None Seen); Hyaline Casts Urine 0-2 /LPF (0-2); RBC Urine 0-2 /HPF (0-2); Squamous Epithelial Cell Urine 0-2 /HPF (0-2); WBC Urine 0-5 /HPF (0-5)
== END 2024-06-04 11:54 | disposition home or self-care (01) ==
LOC: HO.HMGCLDS 11:53
PROVIDERS: PCP Nurse Practitioner Family; Visit Provider Nurse Practitioner Family
DX: R80.9 Proteinuria, unspecified (principal)
CPT/HCPCS: 81001; 81003

== ENCOUNTER 2024-06-15 18:54 | Outpatient (REF) | payer BC, SELFPAY ==
--- NOTE | ~2024-06-15 | MR_ITS ---
EXAMINATION: MR SHOULDER WITHOUT CONTRAST, RIGHT CLINICAL INFORMATION: Right shoulder pain. Limited motion. COMPARISON: Right shoulder radiographs dated 06/17/2024. TECHNIQUE: MRI of the shoulder without contrast was performed on a high-field scanner. FINDINGS: ROTATOR CUFF: Complete, full-thickness tear of the subscapularis tendon with retraction of the torn tendon fibers proximal to the glenohumeral articulation. Severe subscapularis muscle atrophy and near-complete fatty replacement. Moderate to severe supraspinatus and more moderate infraspinatus tendinosis. Distal bursal surface fraying/partial tear of the junctional fibers without a full-thickness supraspinatus or infraspinatus tendon tear. Intact teres minor tendon. Moderate supraspinatus, infraspinatus, and teres minor muscle atrophy. BICEPS: Medial dislocation of the proximal long head biceps tendon at the level of the lesser tuberosity. Thickening and heterogeneity of the tendon consistent with moderate to severe tendinosis. CORACOACROMIAL ARCH: The undersurface of the acromion is flat with no subacromial spur. Severe acromioclavicular osteoarthritis. LABRUM/CAPSULE: Diffuse attenuation and irregularity of the labrum with absence of the posterior labrum, consistent with complex tearing. Intact inferior joint capsule. GLENOHUMERAL JOINT/MARROW: Chronic posterior subluxation of the humeral head with prominent posterior glenoid bony remodeling. Diffuse subchondral cystic change, marrow edema, and large marginal osteophytes throughout the glenohumeral joint. Large joint effusion with prominent synovitis/debris. Lobulated debris versus loose bodies within the proximal long head biceps tendon. MR/MR shoulder RT wo con IMPRESSION: 1. Complete, full-thickness tear of the subscapularis tendon with retraction of the torn tendon fibers proximal to the glenohumeral articulation. Severe subscapularis muscle atrophy and near-complete fatty replacement. Moderate to severe supraspinatus and more moderate infraspinatus tendinosis with distal bursal surface fraying/partial tear of the junctional fibers. Moderate supraspinatus, infraspinatus, and teres minor muscle atrophy. 2. Medial dislocation of the proximal long head biceps tendon with moderate to severe tendinosis. 3. Severe acromioclavicular osteoarthritis. 4. Severe glenohumeral osteoarthritis with chronic posterior subluxation of the humeral head and prominent posterior glenoid bony remodeling. Large joint effusion with prominent synovitis/debris. Lobulated debris versus loose bodies within the proximal long head biceps tendon. 5. Diffuse complex tearing of the glenoid labrum with absence of the posterior labrum.
== END 2024-06-15 18:55 | disposition home or self-care (01) ==
LOC: HO.MRI 18:54
PROVIDERS: PCP Nurse Practitioner Family; Visit Provider Nurse Practitioner Family
DX: M25.511 Pain in right shoulder (principal)
CPT/HCPCS: 73221

== ENCOUNTER 2024-06-17 09:46 | Outpatient (REF) | payer BC, SELFPAY ==
--- NOTE | ~2024-06-17 | XR_ITS ---
EXAMINATION: XR SHOULDER, RIGHT CLINICAL INFORMATION: Right shoulder pain. COMPARISON: Right shoulder MRI dated 06/15/2024. TECHNIQUE: AP and scapular Y views of the right shoulder. FINDINGS: Chronic posterior subluxation of the humeral head with severe glenohumeral joint space narrowing and bony remodeling. Subchondral sclerosis and marginal osteophytes. Severe acromioclavicular osteoarthritis. No concerning lytic or blastic osseous lesion. Small calcification adjacent to the greater tuberosity measuring up to 0.3 cm, likely indicating distal infraspinatus calcific tendinitis. XR/XR shoulder RT min 2V IMPRESSION: 1. Chronic posterior subluxation of the humeral head with severe glenohumeral osteoarthritis and bony remodeling. 2. Severe acromioclavicular osteoarthritis. 3. Small calcification adjacent to the greater tuberosity, likely indicating distal infraspinatus calcific tendinitis.
== END 2024-06-17 09:47 | disposition home or self-care (01) ==
LOC: HO.HOSX 09:46
PROVIDERS: PCP Nurse Practitioner Family; Visit Provider Orthopaedic Surgery
DX: M19.011 Primary osteoarthritis, right shoulder (principal)
CPT/HCPCS: 73030

== ENCOUNTER 2024-06-17 10:10 | Outpatient (AMB) | payer BC, SELFPAY ==
--- NOTE | 2024-06-17 10:18 | A.OFFVIS_ITS ---
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 Pt states his pain started about a year ago with no known injury. Pt denies any previous surgeries or injections in his shoulder. The patient states that over the last 6 months he has lost a significant amount of range of motion. He reports difficulty lifting his right hand above shoulder height. He also reports a ?clicking sound? when he moves his right shoulder. He has taken Tylenol and ibuprofen which gave him minimal relief. 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 Brother Lung cancer Social History Housing: House Alcohol intake: current Alcohol intake frequency: a few times a week Patient Tobacco Use Status: Current everyday Tobacco user Tobacco use type: Cigarette Cigarette Packs Per Day: 1 Cigarettes Per Day: 20.0 Years Smoked: onset 16yo, 1ppd x 42yrs, 40pyh e-Cigarette/Vaping Use: Never Used service: No Current occupational status: employed Current occupational exposures/hazards: No Cognitive needs: No Hearing needs: No Vision needs: Yes Physical Exam Const Other: Well-nourished well-developed very friendly male awake alert and oriented x3 in no acute distress Extrem Other: Bilateral upper extremity examination shows good capillary refill, no skin lesions noted, normal sensation light touch Right shoulder examination shows very limited active and passive range of motion with forward flexion to 40 degrees, external rotation to 20 degrees, internal rotation to his right hip Results Reviewed Results Reviewed: X-rays of the patient's right shoulder show end-stage glenohumeral joint degenerative joint disease with grade 4 [id number] arthritis, subchondral sclerosis, osteophyte formation MRI of the patient's right shoulder shows end-stage glenohumeral joint arthritis, no evidence of rotator cuff tearing Assessment & Plan Assessment & Plan (1) Arthritis of right shoulder region: Code(s): M19.011 - Primary osteoarthritis, right shoulder Category: Medical Plan Mr. Silva presents with progressively worsening right shoulder pain and stiffness due to end-stage glenohumeral joint arthritis. I had a lengthy discussion with the patient regarding the treatment options. Based on the severity of his glenohumeral joint degenerative changes I do not feel that an arthroscopic procedure would give him significant relief. The patient may be a candidate for reverse total shoulder replacement surgery. Thus, I will have him evaluated by my partner, Dr. Carlson, for further information regarding this type of surgery. The patient will continue with his range of motion exercises in the meantime. Feel free to call me at any time should questions regarding his orthopedic management arise. Thank you very much for asking me to see this very friendly gentleman. I spent 20 minutes in reviewing the patient's records and imaging studies, seeing the patient and documenting in the medical record. Orders: Orders XR shoulder RT min 2V Today M25.511 - Pain in right shoulder Coding Level of Care Code New Pt Level 3 (43266) Diagnoses Arthritis of right shoulder region M19.011
== END 2024-06-17 10:33 | disposition home or self-care (01) ==
PROVIDERS: PCP Nurse Practitioner Family; Visit Provider Orthopaedic Surgery
DX: M19.011 Primary osteoarthritis, right shoulder (principal)
CPT/HCPCS: 99203

== ENCOUNTER 2024-06-25 06:52 | Day surgery (SDC) | payer BC, SELFPAY ==
[2024-06-23 11:09] VITALS: BMI 25.1
[2024-06-25 07:00] VITALS: BMI 23.8
[2024-06-25] MEDS: Lactated Ringers 1,000 ML 100 ML IVCONT (07:07)
[2024-06-25 07:15] VITALS: BP 140/75; PULSE 78; RESP 18; TEMP 36.8; O2SAT 98
--- NOTE | 2024-06-25 07:33 | P.CONAN_ITS ---
HPI - Anesthesia Eval Consult details Narrative: colon screen [facility] Active Problems Active Problems: All Active Problems Arthritis of right shoulder region (Acute) Proteinuria (Acute) Encounter for routine adult physical exam with abnormal findings (Acute) Varicose veins of both lower extremities (Acute) Right shoulder pain (Acute) Physical exam, annual (Acute) Pre-op examination (Acute) Macrocytic anemia (Acute) HTN (hypertension) (Acute) Nicotine dependence, cigarettes, uncomplicated (Acute) Tubular adenoma of colon (Acute) RBBB (Acute) Peroneal nerve injury (Acute) Family hx of colon cancer (Acute) Past Medical History Medical History Nicotine dependence, cigarettes, uncomplicated Tubular adenoma of colon History of neuropathy 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 Brother Lung cancer Family history of problems with anesthesia: No Surgical History Surgical History History of right inguinal hernia repair History of colonoscopy S/P arterial stent History of Problems with Anesthesia: No Social History Social History Housing: House Alcohol intake: current Alcohol intake frequency: a few times a week Patient Tobacco Use Status: Current everyday Tobacco user Tobacco use type: Cigarette Cigarette Packs Per Day: 1 Cigarettes Per Day: 20.0 Years Smoked: onset 16yo, 1ppd x 42yrs, 40pyh Smoked in Last 30 Days: Yes e-Cigarette/Vaping Use: Never Used Patient Interested in Nicotine Replacement: No Substance Use Frequency: Daily Are you DNR?: No Advance Directives: No Advance Directives Information Provided: Yes Recently lost weight without trying: No Nutrition Risks: No Nutritional Risk service: No Current occupational status: employed Current occupational exposures/hazards: No Cognitive needs: No Hearing needs: No Vision needs: Yes Meds Allergies Allergy/AdvReac Type Severity Reaction Status Date / Time amoxicillin [AMOXICILLIN] Allergy Unknown ITCH, Verified 06/25/24 07:16 RASH, Rash, Rash Active Medications: Current Medications Lactated Ringer's (Lr) 1,000 mls @ 100 mls/hr IVCONT .Q10H CANDELARIO Last Admin: 06/25/24 07:07 Dose: 100 mls/hr Exam Height,Weight and Vital Signs: Height 5 ft 5 in Weight 64.864 kg Last Vital Signs Temp 98.2 F 06/25/24 07:15 Pulse 78 06/25/24 07:15 Resp 18 06/25/24 07:15 BP 140/75 H 06/25/24 07:15 Pulse Ox 98 06/25/24 07:15 O2 Del Method Room Air 06/25/24 07:15 Airway Mallampati Class: II TM Dist: >3cm Neck ROM: Full Loose/Missing/Broken Teeth: Yes and Lower (front missing and loose) Heart: rrr Lungs: cta Assessment and Plan Assessment Anesthesia Assessment: Anesthesia Plan Discussed Final Anesthetic Review Family History of Problems with Anesthesia: No History of Problems with Anesthesia: No NPO: Yes ASA Class: II Final Preanesthetic Review: No Changes in Pt Med Stat, Meds/Allgs Chart Reviewed, Consent Obtained/Reviewed and Anes Risks/Benef Reviewed Patient Risk: Low Procedure Risk: Low Anesthetic Plan Anesthetic Plan: MAC: Disposition: Standard PACU
--- NOTE | 2024-06-25 08:00 | MHC.SHP ---
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 HTN (hypertension) Claudication Surgical History History of right inguinal hernia repair History of colonoscopy S/P arterial stent Allergies: Allergies Allergy/AdvReac Type Severity Reaction Status Date / Time amoxicillin [AMOXICILLIN] Allergy Unknown ITCH, Verified 06/25/24 07:16 RASH, Rash, Rash Review of Systems Review of Systems Comment: Ten point ROS negative Exam Exam Comment: Gen appear: No acute distress HEENT: no icterus Chest: No overt resp distress Abd: soft, nontender, nondistended Psych: Stable affect, answering questions appropriately Neuro: A/Ox3 noted to move all extremities spontaneously Ext: no peripheral edema Plan Diagnosis/Plan: Unchanged I have reviewed the history and physical and performed a pertinent physical examination on my patient. No changes have occurred unless specified. Time Spent With Patient Time: Total time managing care of this patient today ____ minutes.
--- NOTE | 2024-06-25 08:19 | P.OPN-COLO_ITS ---
Colonoscopy Operative Note Operative Note Date of Service: 06/25/24 Narrative: Procedure: Colonoscopy Indication: Personal history of polyps Endoscopist: Janette Colby MD Anesthesia Provider: Jessica Felix CRNA Anesthesia type: MAC Instrument: Olympus [id number]-[id number] Consent: Indication, risks vs benefits, and alternatives were discussed with the patient who gave written informed consent to proceed. EKG, pulse, pulse oximetry and blood pressure were monitored throughout the procedure. Please see anesthesia flowsheet. Procedure: The patient was brought to the procedure room and placed in the left lateral decubitus position. IV medications were administered by the anesthesia provider in attendance. A digital rectal exam was performed which was normal. A distal attachment cap was affixed to the tip of the colonoscope which was then inserted through the anus and advanced through the colon to the cecum at 80 cm,and terminal ileum. Appendiceal orifice and ileocecal valve were identified. Mucosa was carefully examined under high definition white light as the instrument was slowly withdrawn in a retrograde panoramic fashion. Retroflexion was performed in rectum. The procedure was not difficult. There were no immediate obvious complications. The quality of the prep was BBPS: 2+2+2 = adequate Withdrawal time 10 minutes. Limitations: No limitations. Findings: Mucosa: Normal to cecum and terminal ileum. Protruding lesions: * 1 sessile polyp of size 4 mm in descending colon. Cold snare polypectomy was performed. The polyp was completely removed and retrieved. * 1 sessile polyp of size 3 mm in sigmoid colon. Cold snare polypectomy was performed. The polyp was completely removed and retrieved. * Medium internal hemorrhoids without stigmata of recent bleeding. Excavated lesions: * Moderate diverticulosis of whole colon. Impression: 1. Normal colon mucosa 2. Total of 2 polyps removed 3. Diverticulosis 4. Internal hemorrhoids Recommendations: - Follow path results. - Family hx is a bit unclear - pt unsure of the reason his mother got part of her colon removed. If no family hx of CRC in first degree relatives, repeat colonoscopy in 5-7 years.
[2024-06-25 08:57] VITALS: BP 93/59; PULSE 75; RESP 16; TEMP 36.4; O2SAT 93
[2024-06-25 09:10] VITALS: BP 99/60; PULSE 64; RESP 16; O2SAT 96
[2024-06-25 09:24] VITALS: BP 123/67; PULSE 65; RESP 16; TEMP 36.1; O2SAT 96
== END 2024-06-25 10:04 | disposition home or self-care (01) ==
PROVIDERS: PCP Nurse Practitioner Family; Visit Provider Internal Medicine
PROC: 0DJD8ZZ Inspection of Lower Intestinal Tract, Via Natural or Artificial Opening Endoscopic (ICD-10-PCS; CPT 45378; principal; 2024-06-25 08:20)
DX: Z12.11 Encounter for screening for malignant neoplasm of colon (principal); Z86.010 Personal history of colon polyps; Z80.0 Family history of malignant neoplasm of digestive organs; D12.5 Benign neoplasm of sigmoid colon; D12.4 Benign neoplasm of descending colon; K57.30 Diverticulosis of large intestine without perforation or abscess without bleeding; K64.8 Other hemorrhoids; I10 Essential (primary) hypertension; D53.9 Nutritional anemia, unspecified; I45.10 Unspecified right bundle-branch block; Z79.899 Other long term (current) drug therapy; Z88.1 Allergy status to other antibiotic agents; Z98.890 Other specified postprocedural states; F17.210 Nicotine dependence, cigarettes, uncomplicated
CPT/HCPCS: 45385; 88305; J2704

== ENCOUNTER → 2024-06-25 06:52 | Outpatient (BNV) | payer BC, SELFPAY | PROVIDERS: PCP Nurse Practitioner Family; Visit Provider Internal Medicine | DX: Z12.11 Encounter for screening for malignant neoplasm of colon (principal); Z86.010 Personal history of colon polyps; D12.4 Benign neoplasm of descending colon; D12.5 Benign neoplasm of sigmoid colon; K64.8 Other hemorrhoids; K57.30 Diverticulosis of large intestine without perforation or abscess without bleeding | CPT/HCPCS: 45385 ==

== ENCOUNTER 2024-07-02 10:36 | Outpatient (AMB) | payer BC, SELFPAY ==
[2024-07-02 10:49] VITALS: BMI 24.1
--- NOTE | 2024-07-02 10:49 | MHC.OFFVIS ---
Vital Signs 07/02/24 10:49 Height 5 ft 5 in Weight 145 lb BMI 24.1 Intake Visit Reasons: OV- Right Shoulder Pain, possible replacement Intake Note: Dustin is a 59 year old right hand dominant male who presents today for a follow up of his right shoulder OA. He was referred by Dr. Ortega to discuss possible Total Shoulder Arthroplasty Allergies amoxicillin [AMOXICILLIN] Allergy (Unknown, Verified 06/25/24 07:16) ITCH, RASH, Rash, Rash HPI HPI OV- Right Shoulder Pain, possible replacement: Details: Dustin is a 59 year old right hand dominant male who presents today for a follow up of his right shoulder OA. He was referred by Dr. Ortega to discuss possible Total Shoulder Arthroplasty. 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 He is a chronic smoker and has lower extremity vasculopathy. 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 Brother Lung cancer Social History Housing: House Alcohol intake: current Alcohol intake frequency: a few times a week Patient Tobacco Use Status: Current everyday Tobacco user Tobacco use type: Cigarette Cigarette Packs Per Day: 1 Cigarettes Per Day: 20.0 Years Smoked: onset 16yo, 1ppd x 42yrs, 40pyh e-Cigarette/Vaping Use: Never Used service: No Current occupational status: employed Current occupational exposures/hazards: No Cognitive needs: No Hearing needs: No Vision needs: Yes Physical Exam Vital Signs: BMI result Body Mass Index 24.1 Extrem Other: Minimal external rotation abduction to 70 degrees forward flexion to 110 painful passive and active motion Results Reviewed Results Reviewed: I personally reviewed relevant radiographs. Severe glenohumeral osteoarthritis Assessment & Plan Assessment & Plan (1) Arthritis of right shoulder region: Code(s): M19.011 - Primary osteoarthritis, right shoulder Category: Medical Plan: This is a 59-year-old gentleman with right shoulder osteoarthritis. He has severe disease minimal motion and pain. He works with lifting activities and is a smoker with history of lower extremity claudication with poor dentition. He is not a surgical candidate at this time. I think if he were to stop heavy lifting and smoking he would have significant improvements in the quality of his life. From an orthopedic perspective he would need to change his type of work. Smoking take care of his teeth to have a more realistic discussion of shoulder surgery in the meantime options in my opinion are injections and activity modification. I explained this to him. He expressed some understanding although does not seem to see the connection between smoking and vasculitis/claudication. (2) Nicotine dependence, cigarettes, uncomplicated: Comment: (current smoker, onset 16yo, 1ppd x 42yrs, 40pyh, + fam hx lung ca in dad/brother) Code(s): F17.210 - Nicotine dependence, cigarettes, uncomplicated Category: Medical Plan: (3) Claudication: Code(s): I73.9 - Peripheral vascular disease, unspecified Category: Medical Plan: Coding Level of Care Code Est Pt Level 4 (21588) Diagnoses Arthritis of right shoulder region M19.011 Nicotine dependence, cigarettes, uncomplicated F17.210 Claudication I73.9
== END 2024-07-02 11:06 | disposition home or self-care (01) ==
PROVIDERS: PCP Nurse Practitioner Family; Visit Provider Orthopaedic Surgery
DX: M19.011 Primary osteoarthritis, right shoulder (principal); F17.210 Nicotine dependence, cigarettes, uncomplicated; I73.9 Peripheral vascular disease, unspecified
CPT/HCPCS: 99213

== ENCOUNTER → 2024-07-02 10:36 | Outpatient (BNVA) | payer BC, SELFPAY | PROVIDERS: PCP Nurse Practitioner Family; Visit Provider Orthopaedic Surgery ==

== ENCOUNTER 2024-09-02 10:43 | Outpatient (REF) | payer BC, SELFPAY | END 2024-09-02 10:44 | disposition home or self-care (01) | LOC: HO.CT 10:43 | PROVIDERS: PCP Nurse Practitioner Family; Visit Provider Physician Assistant Medical | DX: Z12.2 Encounter for screening for malignant neoplasm of respiratory organs (principal); F17.210 Nicotine dependence, cigarettes, uncomplicated | CPT/HCPCS: 71271 ==

== ENCOUNTER 2025-06-03 16:01 | Outpatient (AMB) | payer OTHER, SELFPAY ==
[2025-06-03 16:05] VITALS: BP 140/82; PULSE 64; RESP 16; TEMP 36.8; O2SAT 95; BMI 23.3
--- NOTE | 2025-06-03 16:05 | A.OFFPC_ITS ---
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: No Accompanied by: Self / Same As Patient Allergies amoxicillin (AMOXICILLIN) Allergy (Unknown, Verified 06/03/25 17:02) ITCH, RASH, Rash, Rash Medication List - Last Reconciled 06/03/25 by Steve Gaffney, [facility] amlodipine 10 mg PO DAILY atenolol 50 mg PO DAILY 90 days gabapentin 600 mg PO TID 30 days lisinopril 10 mg PO DAILY Tobacco use date assessed: 06/03/25 Dental Screening Dental Screen Date: 06/03/25 Did you have a dental visit in the last 12 months?: Yes Did you have a dental problem in the last 6 months where you did not have access to dental care?: No Was dental information given to patient?: Patient has dentist HPI Annual PE HPI Details History of Present Illness The patient is a 60-year-old male presenting for management of chronic conditions and preventative care. The patient has a history of neuropathy, particularly affecting his left foot, which has been intense and required consultation with neurology in the past (on gabapentin). He regularly visits a vascular specialist for ongoing management. He has a documented right bundle branch block, initially identified in May 05, for which he was referred to cardiology, although he did not attend the appointment. A repeat EKG is planned, and an echocardiogram will be conducted due to his symptoms and significant smoking history. The patient reports claudication and continues to see a vascular specialist regularly for this condition. He has a history of hypertension, with elevated blood pressure noted during the visit, possibly exacerbated by tremors observed today. The patient admits to heavy alcohol consumption, drinking at least two beers and four shots daily, with increased intake on weekends. He has declined assistance for alcohol use disorder at this time, although support was offered. Preventative care includes annual low-dose CT scans for lung cancer screening, which are up to date. Pt is not interested in any inhalers. Health Maintenance - Annual low-dose CT scan for lung cance r screening - Colon cancer screening is up to date Social History - Substance use: excessive alcohol consu mption, at least two beers and four shots daily, more on weekends Review of Systems - Cardiovascular: Denies chest pain - Respiratory: Denies increased dyspnea, reports congestion when sleeping on his side - Gastrointestinal: Denies abdominal vincent n, blood in stool, constipation, diarrhea - Neurological: Reports tremors, denies suicidal or homicidal ideation - denies any si or hi Physical Exam General: Cooperative, healthy appearing, comfortable, no acute distress and well developed Orientation: Patient oriented x3 Limitations: No limitations Head: Normal to inspection Ears: Hearing grossly normal bilaterally, several mostly macular, some slightly papular lesions noted Nose: Normal external nose present, macular lesion to nose Face and sinus: Normal facial exam, several mostly macular, some slightly papular lesions noted Eyes: Appearance normal, both eyes and all related structures Neck: Normal visual inspection and Yes full ROM Respiratory: Normal respiratory effort and able to speak in complete sentences, dim though moving air bilat. Cardiovascular: Regular rate and rhythm. Normal S1 and S2. Right bundle branch block noted on EKG GI: Normal to inspection. Soft to palpation and nontender : Testicles without masses/lesions and no hernias appreciated Skin: No rashes or lesions noted, except for several varicose veins to bilateral extremities Neuro: Patient oriented x3, tremors noted Extremities: several varicose veins noted bilaterally Results - EKG: Right bundle branch block noted Plan The patient will undergo a repeat EKG and an echocardiogram to further evaluate the right bundle branch block and assess cardiac function, given his smoking history and symptoms. Referral to cardiology is planned for comprehensive cardiac evaluation. The patient is encouraged to seek assistance for alcohol use disorder, although he has declined help at this time. Continued follow-up with a vascular specialist is recommended for management of claudication and varicose veins/PVD. Preventative care measures, including annual low-dose CT scans for lung cancer screening, will be maintained. Discussion Notes I discussed with the patient the importance of addressing his right bundle branch block and the need for further cardiac evaluation, including a repeat EKG and echocardiogram. I emphasized the significance of managing his alcohol use disorder and offered assistance, which he declined at this time. We also reviewed the necessity of maintaining regular follow-ups with his vascular specialist and continuing preventative care measures such as lung cancer screening. Patient Instructions - Follow up with cardiology for further evaluation of heart condition. - Consider seeking help for alcohol use if ready. - Continue regular visits with vascular specialist. - Maintain annual low-dose CT scans for lung cancer screening. -dermatology referral placed [facility] Medical History HTN (hypertension) Nicotine dependence, cigarettes, uncomplicated Tubular adenoma of colon Stenosis of artery of left lower extremity History of neuropathy Nerve damage of left foot Claudication Surgical History History of right inguinal hernia repair History of colonoscopy S/P arterial stent Family History Father Hypertension Lung cancer Mother No problems noted. Brother Lung cancer Social History Housing: House Alcohol intake: current Alcohol intake frequency: a few times a week Patient Tobacco Use Status: Current everyday Tobacco user Tobacco use type: Cigarette Cigarette Packs Per Day: 1 Cigarettes Per Day: 20.0 Years Smoked: onset 16yo, 1ppd x 42yrs, 40pyh e-Cigarette/Vaping Use: Never Used service: No Current occupational status: employed Current occupational exposures/hazards: No Cognitive needs: No Hearing needs: No Vision needs: Yes Questionnaire PHQ-9 Over the last 2 weeks, how often have you been bothered by any of the following problems? 1. Little interest or pleasure in doing things: not at all 2. Feeling down, depressed, or hopeless: not at all 3. Trouble falling or staying asleep, or sleeping too much: nearly every day 4. Feeling tired or having little energy: not at all 5. Poor appetite or overeating: several days 6. Feeling bad about yourself - or that you are a failure or have let yourself or your family down: not at all 7. Trouble concentrating on things, such as reading the newspaper or watching television: not at all 8. Moving or speaking so slowly that other people could have noticed. Or the opposite - being so fidgety or restless that you have been moving around a lot more than usual: not at all 9. Thoughts that you would be better off or of hurting yourself in some way: not at all Total score: 4 Depression Screening Interpretation: Negative Depression Screening Done: Yes 36810 - PHQ-9 Billing: Yes Source: Developed by Drs. Eber Kumar, Ruth Ahn, Jose Francisco Strauss and colleagues, with an educational ralph from [employer]. Thrive Questionnaire Date Thrive assessed: 05/28/25 I am a: Patient What is your living situation today?: I have a steady place to live Within the past 12 months, did the food you bought not last and you didn't have the money to get more?: Never true Within the past 12 months, did you worry whether your food would run out before you got money to buy more?: Never true Do you have trouble paying for medicines?: No Do you have trouble getting transportation to medical appointments?: No Do you have trouble paying your heating and electricity bill?: No Do you have trouble taking care of your child, family member or friend?: No Do you have trouble with day-to-day activities such as bathing, preparing meals, shopping, managing finances, etc.?: No Are you currently unemployed and looking for a job?: No Are you interested in more education?: No Please select the resources that you would like help with: None Currently or been in a relationship where the following occur: No concerns reported THRIVE Score: 0 AUDIT C Alcohol Use Questionnaire (AUDIT-C) 1. How often do you have a drink containing alcohol?: 4 or more times a week 2. How many drinks containing alcohol do you have on a typical day when you are drinking?: 3 or 4 3. How often do you have six or more drinks on one occasion?: Weekly Total Score: 8 Score Reviewed/Action Taken: Yes CHAUNCEY-7 AMB Questionnaire CHAUNCEY-7 Date CHAUNCEY - 7 assessed: 06/03/25 Feeling nervous, anxious, or on edge: 0 = Not at all Not being able to stop or control worryin = Not at all Worrying too much about different things: 0 = Not at all Trouble relaxin = Not at all Being so restless that it is hard to sit still: 0 = Not at all Becoming easily annoyed or irritable: 0 = Not at all Feeling afraid as if something awful might happen: 0 = Not at all Total CHAUNCEY-7 score (0-4 normal; 5-9 mild; 10-14 moderate; 15-21 severe): 0 Source: Developed by Drs. Eber Kumar, Ruth Ahn, Jose Francisco Strauss and colleagues, with an educational ralph from [employer]. CHAUNCEY-7 Assessment Billing CHAUNCEY-7 Assessment Tool: CHAUNCEY-7 Assessment 76999 Physical exam (Primary Care) Vital Signs: Last Vital Signs Temp 98.2 F 06/03/25 16:05 Pulse 64 06/03/25 16:05 Resp 16 06/03/25 16:05 BP 140/82 H 06/03/25 16:05 Pulse Ox 95 06/03/25 16:05 Oxygen Delivery Method Room Air 06/03/25 16:05 BMI result Body Mass Index 23.3 Tobacco/Smoking Status: Tobacco use Status Tobacco use date assessed 06/03/25 06/03/25 16:32 Patient Tobacco Use Status Current everyday Tobacco 06/03/25 16:06 Tobacco use type Cigarette 06/03/25 16:06 e-Cigarette/Vaping Use Never Used 06/03/25 16:06 PHQ-9: PHQ-9 Score PHQ-9: Total score 4 06/03/25 16:32 Depression Screening Interpretation: Negative Thrive Assessment: Date of Thrive Assessment Date Thrive assessed 05/28/25 06/03/25 16:06 Currently or been in a relationship where the following occur: No concerns r eported Coding Level of Care Code Est Pt Level 3 (92226) Est Pt Prev Care 40-64y(59574) Diagnoses Encounter for routine adult physical exam with abnormal findings Z00.01 Screening PSA (prostate specific antigen) Z12.5 Smoker F17.200 RBBB I45.10 ETOH abuse F10.10 Additional Codes CHAUNCEY-7 Assessment Billing - CHAUNCEY-7 Assessment Tool: CHAUNCEY-7 Assessment 61370 ([id number]) PHQ-9 - 39700 - PHQ-9 Billing: Yes ([id number]) Assessment & Plan Assessment & Plan (1) Encounter for routine adult physical exam with abnormal findings: Code(s): Z00.01 - Encounter for general adult medical examination with abnormal findings Category: Medical (2) Screening PSA (prostate specific antigen): Code(s): Z12.5 - Encounter for screening for malignant neoplasm of prostate Category: Medical (3) Smoker: Code(s): F17.200 - Nicotine dependence, unspecified, uncomplicated Category: Social Hx (4) RBBB: Comment: (RBBB on 05/08/23 EKG) Code(s): I45.10 - Unspecified right bundle-branch block Category: Medical (5) ETOH abuse: Code(s): F10.10 - Alcohol abuse, uncomplicated Category: Social Hx Plan . Orders: Orders TSH reflex Free T4 Today Z00.01 - Encounter for general adult medical examination with abnormal findings UA CC w/rflx Micro + Cult Today Z00.01 - Encounter for general adult medical examination with abnormal findings Prostate Specific Antigen Scr Today Z12.5 - Encounter for screening for malignant neoplasm of prostate AMB EKG-In Office Today F17.200 - Nicotine dependence, unspecified, uncomplicated, I45.10 - Unspecified right bundle-branch block, Z00.01 - Encounter for general adult medical examination with abnormal findings Complete Blood Count Auto Diff Today Z00.01 - Encounter for general adult medical examination with abnormal findings Comprehensive [place]. Panel Fast Today Z00.01 - Encounter for general adult medical examination with abnormal findings Lipid Panel Today Z00.01 - Encounter for general adult medical examination with abnormal findings CA echo transthoracic complete Today F17.200 - Nicotine dependence, unspecified, uncomplicated, I45.10 - Unspecified right bundle-branch block Referrals Cardiology Referral F10.10 - Alcohol abuse, uncomplicated, F17.200 - Nicotine dependence, unspecified, uncomplicated, I45.10 - Unspecified right bundle-branch block
== END 2025-06-03 17:06 | disposition home or self-care (01) ==
LOC: HO.HMCC 16:02
PROVIDERS: PCP Nurse Practitioner Family; Visit Provider Nurse Practitioner Family
DX: Z00.01 Encounter for general adult medical examination with abnormal findings (principal); I45.10 Unspecified right bundle-branch block; F17.200 Nicotine dependence, unspecified, uncomplicated; Z12.5 Encounter for screening for malignant neoplasm of prostate; F10.10 Alcohol abuse, uncomplicated

== ENCOUNTER → 2025-06-03 16:01 | Outpatient (BNVA) | payer OTHER, SELFPAY | PROVIDERS: PCP Nurse Practitioner Family; Visit Provider Nurse Practitioner Family | DX: Z00.01 Encounter for general adult medical examination with abnormal findings (principal); G62.9 Polyneuropathy, unspecified; I45.10 Unspecified right bundle-branch block; I10 Essential (primary) hypertension; F17.210 Nicotine dependence, cigarettes, uncomplicated; F10.10 Alcohol abuse, uncomplicated; Z12.5 Encounter for screening for malignant neoplasm of prostate | CPT/HCPCS: 96127; 99212; 99396 ==

== ENCOUNTER 2025-10-13 06:42 | Outpatient (AMB) | payer OTHER, SELFPAY ==
--- NOTE | 2025-10-13 07:53 | A.OFFPC_ITS ---
Intake Visit Reasons: Discuss ETOH Allergies amoxicillin (AMOXICILLIN) Allergy (Unknown, Verified 06/03/25 17:02) ITCH, RASH, Rash, Rash Tobacco use date assessed: 06/03/25 Dental Screening Dental Screen Date: 06/03/25 HPI Discuss ETOH HPI Details History of Present Illness The patient is a 60 year old male presenting for management of alcohol abuse and associated withdrawal symptoms. He reports drinking alcohol, specifically vodka, to prevent delirium tremens. He experiences tremors in the morning and throug hout the day if he does not drink, and had already consumed two vodka drinks on the day of this visit. The patient also reports abdominal discomfort in the epigastric area. He denies chest pain, shortness of breath, fevers, chills, or vomiting. His medical history is significant for coronary artery calcification seen on previous imaging, reinforced importance of statin therapy. Review of Systems - Constitutional: Denies fevers and chil ls. - Cardiovascular: Denies chest pain. - Respiratory: Denies shortness of breat h. - Gastrointestinal: Reports epigastric a bdominal discomfort. Denies vomiting. - Neurological: Reports tremors. Plan 1. Alcohol Abuse With Withdrawal The patient abuses alcohol and is drinking to manage withdrawal symptoms, including tremors. He was strongly encouraged to go to the emergency room for medically supervised withdrawal. The patient was reluctant but promised to go to the ER this week to manage his affairs first. An outpatient program can be arranged after he completes the withdrawal process. 2. Epigastric Abdominal Discomfort The patient reports abdominal discomfort in the epigastric area, raising suspicion for pancreatitis. Further assessment with imaging can be performed at the emergency room. 3. Coronary Artery Calcification Due to coronary artery calcification seen on prior imaging, a statin will be initiated. Discussion Notes I discussed the patient's alcohol abuse and withdrawal symptoms, including tremors, which he is managing by continuing to drink. I strongly encouraged him to go directly to the ER for a medically supervised withdrawal, explaining that we could arrange an outpatient program afterward. I emphasized the importance of going today, but he was reluctant and promised to go sometime this week after getting his affairs in order. I informed him that I would call the ER to give a report in anticipation of his arrival. We also discussed his epigastric discomfort, and I mentioned the possibility of pancreatitis, which could be evaluated in the ER. Finally, I informed him I would be starting him on a statin due to the coronary artery calcification seen on previous imaging. Patient Instructions - You are being started on a new medicat ion called a statin for your heart health, based on findings from a previous scan. - It is very important that you go to [facility] emergency room this week to get help safely stopping alcohol. This will help with the withdrawal symptoms like shaking. - After you complete the process at the hospital, we can get you into an outpatient program for continued support. - The ER can also check on the stomach d iscomfort you are having. [facility] Medical History HTN (hypertension) Nicotine dependence, cigarettes, uncomplicated Tubular adenoma of colon Stenosis of artery of left lower extremity History of neuropathy Nerve damage of left foot Claudication Surgical History History of right inguinal hernia repair History of colonoscopy S/P arterial stent Family History Father Hypertension Lung cancer Mother No problems noted. Brother Lung cancer Social History Housing: House Alcohol intake: current Alcohol intake frequency: a few times a week Patient Tobacco Use Status: Current everyday Tobacco user Tobacco use type: Cigarette Cigarette Packs Per Day: 1 Cigarettes Per Day: 20.0 Years Smoked: onset 16yo, 1ppd x 42yrs, 40pyh e-Cigarette/Vaping Use: Never Used service: No Current occupational status: employed Current occupational exposures/hazards: No Cognitive needs: No Hearing needs: No Vision needs: Yes Questionnaire Thrive Questionnaire Date Thrive assessed: 05/28/25 I am a: Patient What is your living situation today?: I have a steady place to live Within the past 12 months, did the food you bought not last and you didn't have the money to get more?: Never true Within the past 12 months, did you worry whether your food would run out before you got money to buy more?: Never true Do you have trouble paying for medicines?: No Do you have trouble getting transportation to medical appointments?: No Do you have trouble paying your heating and electricity bill?: No Do you have trouble taking care of your child, family member or friend?: No Do you have trouble with day-to-day activities such as bathing, preparing meals, shopping, managing finances, etc.?: No Are you currently unemployed and looking for a job?: No Are you interested in more education?: No Please select the resources that you would like help with: None Currently or been in a relationship where the following occur: No concerns reported THRIVE Score: 0 CHAUNCEY-7 AMB Questionnaire CHAUNCEY-7 Date CHAUNCEY - 7 assessed: 06/03/25 Source: Developed by Drs. Eber Kumar, Ruth Ahn, Jose Francisco Strauss and colleagues, with an educational ralph from [employer]. Physical exam (Primary Care) Tobacco/Smoking Status: Tobacco use Status Tobacco use date assessed 06/03/25 06/03/25 16:32 Patient Tobacco Use Status Current everyday Tobacco 06/03/25 16:06 Tobacco use type Cigarette 06/03/25 16:06 e-Cigarette/Vaping Use Never Used 06/03/25 16:06 Thrive Assessment: Date of Thrive Assessment Date Thrive assessed 05/28/25 06/03/25 16:06 Currently or been in a relationship where the following occur: No concerns reported Telehealth Telehealth Telehealth Platform: [employer] Location of provider rendering services: practice address Location of patient: address on file Patient Identification confirmed using: Name, : Yes Telehealth method: video Patient verbally consented to treatment: Yes Patient verbally consented to billing insurance company: Yes Patient informed of any privacy concerns related to visit: Yes Minutes spent on Phone/Video with Pt.: 15 Coding Level of Care Code Tele Est Pt Level 3 (74859) Diagnoses ETOH abuse F10.10 Epigastric discomfort R10.13 CAD (coronary artery disease) I25.10 Assessment & Plan Assessment & Plan (1) ETOH abuse: Code(s): F10.10 - Alcohol abuse, uncomplicated Category: Social Hx (2) Epigastric discomfort: Code(s): R10.13 - Epigastric pain Category: Medical (3) CAD (coronary artery disease): Code(s): I25.10 - Atherosclerotic heart disease of [place] coronary artery without angina pectoris Category: Medical Plan . Medications: New atorvastatin (Lipitor) 20 mg PO BEDTIME 90 tabs 0RF
== END 2025-10-13 07:46 | disposition home or self-care (01) ==
LOC: HO.HMCC 06:43
PROVIDERS: PCP Nurse Practitioner Family; Visit Provider Nurse Practitioner Family
DX: F10.10 Alcohol abuse, uncomplicated (principal); R10.13 Epigastric pain; I25.10 Atherosclerotic heart disease of native coronary artery without angina pectoris

== ENCOUNTER 2025-10-23 01:42 | Emergency (ER) | payer OTHER, SELFPAY ==
[2025-10-23] VITALS (7 sets, daily range): BP systolic 90–132; BP diastolic 62–90; PULSE 72–79; RESP 18–20; TEMP 36.3–37; O2SAT 94–98; BMI 24.9
[2025-10-23 02:21] LABS: Hematocrit 39.5 % (42.0-52.0); Hemoglobin 13.8 g/dl (14.0-18.0); Imm Gran Abs Auto 0.04 X10*3/uL (0.00-0.03); Imm Gran Pct Auto 0.3 % (0.0-0.4); Lymphocytes Absolute Auto 6.0 X10*3/uL (1.2-4.9); Mean Corpuscular HGB Conc 34.9 g/dl (31.0-36.0); Mean Corpuscular Hemoglobin 35.0 pg (27.0-33.0); Mean Corpuscular Volume 100.3 fL (80.0-98.0); NRBC Abs Auto 0.000 X10*3/uL (0.0-0.012); NRBC Pct Auto 0.0 /100WBC (0.0-0.2); Platelet Count 193 X10*3/uL (160-400); Red Blood Count 3.94 X10*6/uL (4.60-5.80); SCAN SMEAR FLAG 1; White Blood Count 11.8 X10*3/uL (4.8-10.8)
[2025-10-23 02:22] LABS: MANUAL DIFF FLAG SCAN
--- NOTE | 2025-10-23 02:23 | ED_ITS ---
HPI - Alcohol General Chief Complaint: ETOH/Substance Use Stated Complaint: ETOH doctor advised to go to ER for detox Time Seen by Provider: 10/23/25 01:55 Source: patient and EMS Mode of arrival: EMS Limitations: no limitations History of Present Illness ED Provider: Dr. Chantal Robles HPI narrative: Patient comes to the emergency room requesting detox. Patient states that he has not had detox before. However, patient states that ?all of his life? has been drinking alcohol throughout the entire day. Patient states that he does not drink alcohol to the point of actually getting drunk and stumble around and fall. However, patient has a consent ?buzz throughout the day. Patient states that every morning he wakes up in the morning with shaking hands. Patient states that his primary care physician has been trying to help him stop drinking. However, patient is now ready to commit to treatment. Patient denies SI or HI. Related Data Previous Rx's ?Medication ?Instructions ?Recorded amlodipine 10 mg tablet 10 mg PO DAILY #90 tabs 03/05 06/28 atenolol 50 mg tablet 50 mg PO DAILY 90 days #90 t abs 10/02/25 lisinopril 10 mg tablet 10 mg PO DAILY #90 tabs 09/05 07/29 atorvastatin 20 mg tablet (Lipitor) 20 mg PO BEDTIME # 90 tabs 10/13/25 gabapentin 600 mg tablet 600 mg PO TID 30 days #90 ta bs 10/15/25 Allergies Allergy/AdvReac Type Severity Reaction Status Date / Time amoxicillin (AMOXICILLIN) Allergy Unknown ITCH, Verified 10/23/25 01:55 RASH, Rash, Rash Review of Systems 2 Review of Systems: Constitutional : No Weight loss, No Fever, No Chills, No Night Sweats, No Fatigue, No Malaise ENT/Mouth : No Hearing loss, No Ear Pain, No Nasal Congestion, No Sinus Pain, No Hoarseness, No sore throat, No Rhinorrhea, No Swallowing Difficulty Eyes: No Eye Pain, No Swelling, No Redness, No Foreign Body, No Discharge, No Vision Changes Cardiovascular : No Chest Pain, No SOB, No Dyspnea on Exertion, No Orthopnea, No Edema, No Palpitations Respiratory : No Cough, No Sputum, No Wheezing, No Smoke Exposure, No Dyspnea Gastrointestinal : No Nausea, No Vomiting, No Diarrhea, No Constipation, No abdominal Pain, No Hematochezia, No Melena Genitourinary : no irregular bleeding, No Dysuria, No Urinary Frequency, No Hematuria, No Urinary Incontinence, No Urgency, No Flank Pain, No Urinary Flow Changes, No Hesitancy Musculoskeletal : No joint pain, No Myalgias, No Joint Swelling Skin : No Skin Lesions, No rash Neuro : No Weakness, No Numbness, No Paresthesias, No Loss of Consciousness, No Dizziness, No Headache Psych : No Anxiety/Panic, No Depression, No SI/HI/AH/VH, admits to alcohol dependence Heme/Lymph: No Bruising, No Bleeding,No Lymphadenopathy Endocrine : No Polyuria, No Polydipsia, No Temperature Intolerance [facility] Past Medical History Medical History HTN (hypertension) Nicotine dependence, cigarettes, uncomplicated Tubular adenoma of colon Stenosis of artery of left lower extremity History of neuropathy Nerve damage of left foot Claudication Surgical History History of right inguinal hernia repair History of colonoscopy S/P arterial stent Family History Family History Father Hypertension Lung cancer Mother No problems noted. Brother Lung cancer Social History Social History Housing: House Alcohol intake: current Alcohol intake frequency: a few times a week Patient Tobacco Use Status: Current everyday Tobacco user Tobacco use type: Cigarette Cigarette Packs Per Day: 1 Cigarettes Per Day: 20.0 Years Smoked: onset 16yo, 1ppd x 42yrs, 40pyh e-Cigarette/Vaping Use: Never Used Advance Directives: No Advance Directives Information Provided: No service: No Current occupational status: employed Current occupational exposures/hazards: No Cognitive needs: No Hearing needs: No Vision needs: Yes Physical Exam ED Exam Exam: Appearance: Alert. Oriented X3. No acute distress. Eyes: Pupils equal, round and reactive to light. ENT: Pharynx normal. Neck: Normal inspection. Neck supple. No lymph nodes noted. No crepitus CVS: Normal heart rate and rhythm. Pulses normal. Normal S1 and S2 Respiratory: No respiratory distress. Breath sounds normal. No Wheezing. No rales Abdomen: Soft and nontender. No rigidity. No distention. Skin: Skin warm and dry. Normal skin color. Normal skin turgor. Extremities: No lower extremity edema. No Lacerations. No Rash Neuro: Oriented X 3. No motor deficit. No sensory deficit. Moving all extremities. No slurred speech. CN 2 through 12 grossly intact Psych: calm, cooperative, normal affect Vital Signs: Vital Signs - 24 hr 10/23/25 01:54 10/23/25 01:56 Temperature 97.3 F 97.3 F Pulse Rate 72 72 Respiratory Rate 18 18 Blood Pressure 90/62 90/62 Pulse Oximetry 96 96 Oxygen Delivery Method Room Air Room Air BMI result Body Mass Index 24.9 Course Course Course Narrative: Patient is alert and oriented x3, no acute distress, calm, cooperative, clinically patient is not intoxicated. Patient is able to hold a normal conversation, reasonable All of patient's labs pending living coach consult pending in the morning. Medical Decision Making Medical Decision Making MDM Narrative: Patient is afraid that he will start going to withdrawal. Patient states that he wakes up in the morning very shaky and not feeling well. Patient was given a dose of p.o. Ativan and Benadryl to help him sleep Differential Diagnosis Differential Diagnoses: The differential diagnosis associated with the presentation includes (Alcohol intoxication, alcohol dependence, polysubstance abuse) Admission/Observation Consideration of admission/observation: Escalation of care including admission/observation considered (Patient is under physician observation waiting to see the recovery team) Lab Data 10/23/25 02:15 10/23/25 02:15 Critical Care Time Critical Care Time Critical Care Time: Yes Total Critical Care Time: 35 Attestation: I have personally provided critical care time. Time includes review of lab data, radiology results, discussion with consultants, and monitoring for potential decompensation. Intervention performed as documented. Discharge Plan Discharge Clinical Impression: Alcohol dependence Prescriptions: No Action amlodipine 10 mg tablet 10 mg PO DAILY Qty: 90 1RF lisinopril 10 mg tablet 10 mg PO DAILY Qty: 90 1RF atenolol 50 mg tablet 50 mg PO DAILY 90 Days Qty: 90 1RF gabapentin 600 mg tablet 600 mg PO TID 30 Days Qty: 90 5RF atorvastatin [Lipitor] 20 mg tablet 20 mg PO BEDTIME Qty: 90 0RF Print Language: Bulgarian
[2025-10-23 02:35] LABS: Cannabinoid Screen Urine POSITIVE (Not Detect)
[2025-10-23 02:36] LABS: Alanine Aminotransferase 49 U/L (0-40); Albumin Level 4.4 g/dL (3.5-5.0); Alkaline Phosphatase 120 U/L (39-117); Anion Gap 14 (12-20); Aspartate Amino Transferase 71 U/L (5-37); Blood Urea Nitrogen 10 mg/dL (9-16); Calcium 9.2 mg/dL (8.4-10.2); Carbon Dioxide 25 mmol/L (22-29); Chloride 102 mmol/L (96-108); Creatinine Clr Calc Pharmacy 97.1; Estimated Glomerular Filt Rate > 60; Magnesium 2.0 mg/dL (1.6-2.6); Potassium 4.1 mmol/L (3.3-5.1); Sodium 137 mmol/L (135-145); Total Protein 7.7 g/dL (6.5-8.0)
--- NOTE | 2025-10-23 10:23 | MHC.RECOVRN ---
Met w/ pt in [facility] for recovery eval r/t AUD. Pt help & detox-seeking. ATS referrals sent per pt request. Recovery eval completed . Dr.Tor Lopes aware.
--- NOTE | 2025-10-23 10:28 | PC.NURSE ---
Assumed care of patient at 0700. Patient resting in bed and eating breakfast. Patient expressed interest in detox. Patient noted to be flushed with generalized tremors. Librium given per JAN.
--- NOTE | 2025-10-23 11:53 | MHC.RECOVRN ---
Pt accepted at [facility] for ATS. Is expected to be there by 2pm . Will be transported there via Lyft. Dr Red Lopes and primary RN aware.
== END 2025-10-23 13:26 | disposition other institution (70) ==
PROVIDERS: Emergency Provider Emergency Medicine; PCP Nurse Practitioner Family
DX: F10.20 Alcohol dependence, uncomplicated (principal); I10 Essential (primary) hypertension; Z72.0 Tobacco use; Z86.79 Personal history of other diseases of the circulatory system; Z79.899 Other long term (current) drug therapy
CPT/HCPCS: 36415; 80048; 80076; 80307; 83735; 85025; 99284; S9485

== ENCOUNTER 2025-10-24 19:42 | Emergency (ER) | payer OTHER, SELFPAY ==
[2025-10-24 19:45] VITALS: BP 115/56; PULSE 65; RESP 18; TEMP 36.3; O2SAT 97; BMI 22.2
--- NOTE | 2025-10-24 19:46 | ED_ITS ---
HPI - Alcohol General Chief Complaint: ETOH/Substance Use Stated Complaint: Alcohol detox Time Seen by Provider: 10/24/25 20:26 Source: patient Mode of arrival: ambulatory Limitations: no limitations History of Present Illness ED Provider: John VALVERDE HPI narrative: Patient is a 60-year-old male with a history of alcohol dependency who presents to the ED after being discharged from this ED earlier today to an outside detox facility where he declined admission after getting bad vibes and no love from staff he describes as a bunch of [place] . He states that upon arrival at the detox center he was asked to remove all clothing and was placed in paper scrubs for infection-control protocols, which led him to feel stigmatized and ?treated like a homeless person.? He reports that staff there then informed him that they did not have any of his home medications including gabapentin, atorvastatin, and BP meds, and patient did not bring his medications with him. Because of the bad vibes and lack of his home medications, he refused to stay and returned here. He did not retrieve his own medications from home, however he did drink since leaving the facility, last drink at 19:15. He feels physically well, denies headache, chest pain, abd pain, nausea, or vomiting. Patient states he contacted [facility] today but has not yet received a call back. Related Data Previous Rx's ?Medication ?Instructions ?Recorded amlodipine 10 mg tablet 10 mg PO DAILY #90 tabs 03/05 06/28 atenolol 50 mg tablet 50 mg PO DAILY 90 days #90 t abs 10/02/25 lisinopril 10 mg tablet 10 mg PO DAILY #90 tabs 09/05 07/29 atorvastatin 20 mg tablet (Lipitor) 20 mg PO BEDTIME # 90 tabs 10/13/25 gabapentin 600 mg tablet 600 mg PO TID 30 days #90 ta bs 10/15/25 Allergies Allergy/AdvReac Type Severity Reaction Status Date / Time amoxicillin (AMOXICILLIN) Allergy Unknown ITCH, Verified 10/24/25 19:48 RASH, Rash, Rash Review of Systems 2 Review of Systems: Yes all other systems are reviewed and are negative [facility] Past Medical History Medical History HTN (hypertension) Nicotine dependence, cigarettes, uncomplicated Tubular adenoma of colon Stenosis of artery of left lower extremity History of neuropathy Nerve damage of left foot Claudication Surgical History History of right inguinal hernia repair History of colonoscopy S/P arterial stent Family History Family History Father Hypertension Lung cancer Mother No problems noted. Brother Lung cancer Social History Social History Housing: House Alcohol intake: current Alcohol intake frequency: 3 or more drinks per day Alcohol type: beer and hard liquor Patient Tobacco Use Status: Current everyday Tobacco user Tobacco use type: Cigarette Cigarette Packs Per Day: 1 Cigarettes Per Day: 20.0 Years Smoked: onset 16yo, 1ppd x 42yrs, 40pyh Smoked in Last 30 Days: Yes e-Cigarette/Vaping Use: Never Used Use of substances other than those prescribed or required for medical reasons: No Substance Use Type: Marijuana Advance Directives: No Advance Directives Information Provided: No Do you have a plan to hurt others: No Plan service: No Current occupational status: employed Current occupational exposures/hazards: No Cognitive needs: No Hearing needs: No Vision needs: Yes Physical Exam ED Vital Signs: Vital Signs - 24 hr 10/24/25 19:45 Temperature 97.3 F Pulse Rate 65 Respiratory Rate 18 Blood Pressure 115/56 L Pulse Oximetry 97 Oxygen Delivery Method Room Air BMI result Body Mass Index 22.2 CONSTITUTIONAL: The patient appears non-toxic, well nourished and in no acute distress. Vital signs as documented. HEAD: Atraumatic, normocephalic. EYES: EOMs grossly intact, pupils equal, conjunctiva clear, no exudate. ENT: Nares patent, no discharge. Airway patent, no audible stridor, visible mucosa is pink and moist without noted lesions. Odor of EtOH metabolites on breath. NECK: Trachea is midline, no obvious masses or gross abnormalities. CHEST: Symmetric movement, normal appearance. LUNGS: LS present and CTAB, no w/r/r. Non-labored work of breathing. CARDIAC: Regular Rhythm, S1/S2 appreciated, no murmurs, rubs or gallops. ABDOMEN: Abdomen soft and non-tender x4 quadrants, no palpable masses or organomegaly. : Deferred. EXTREMITIES: Normal tone, moves all extremities spontaneously without reported pain. No obvious acute injury or deformity noted. NEURO: Alert and oriented x3, CN II-XII appear grossly intact. Cerebellar Functioning grossly intact. No obvious sensory or motor deficits. Speech clear and appropriate. PSYCH: normal affect, appropriate eye contact, fluid speech, with appropriate response to questioning. No reported suicidality or homicidality. SKIN: Warm, dry, color appropriate, normal turgor. No rashes noted. Course Course Course Narrative: This is a Rapid Medical Examination (RME) performed by Shayla Booth NP in triage. Full assessment, plan deferred to cabinetmaker supervisor. 58-year-old male medical history significant for CAD, ETOH abuse, hypertension, nicotine dependence, macrocytic anemia, presented to the ED via triage reporting a problem with alcohol. Patient reports he is looking for detox placement. He was sent to [facility] in [place] this morning. He states he had a bad experience so he left there. Because of his bad experience, he decided to come back here as he has had better experiences here, looking for help with detox again. 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 Reports drinking about 10 drinks today. Reports using marijuana but no other drugs. No SI/HI. No additional medical complaints. No withdrawal symptoms. Plan: labs for clearance, UA, etoh level, care eval. Medical Decision Making Medical Decision Making MDM Narrative: 8:47 PM 10/24/2025 (Kai VALVERDE): Patient is a 60-year-old male with a history of alcohol dependency who presents to the ED after being discharged from this ED earlier today to an outside detox facility where he declined admission after getting bad vibes and no love from staff he describes as a bunch of [place] . He states that upon arrival at the detox center he was asked to remove all clothing and was placed in paper scrubs for infection-control protocols, which led him to feel stigmatized and ?treated like a homeless person.? He reports that staff there then informed him that they did not have any of his home medications including gabapentin, atorvastatin, and BP meds, and patient did not bring his medications with him. Because of the bad vibes and lack of his home medications, he refused to stay and returned here. He did not retrieve his own medications from home, however he did drink since leaving the facility, last drink at 19:15. He feels physically well, denies headache, chest pain, abd pain, nausea, or vomiting. Patient states he contacted [facility] today but has not yet received a call back. On exam patient has odor of EtOH metabolites on breath, but exam is otherwise unremarkable, lung sounds clear to auscultation, no abdominal tenderness. Patient's ethanol level during this visit is 190, laboratory evaluation shows no leukocytosis, significant anemia, electrolyte abnormality, or WILBERTO. The patient will have a recovery team consultation placed to assess for detox bed availability. 9:33 PM 10/24/2025 (Kai VALVERDE): Patient is seen by recovery team, provided resources, patient has no evidence of withdrawal, patient will be discharged. Admission/Observation Consideration of admission/observation: Escalation of care including admission/observation considered Lab Data MDM Lab Attestation statement: I reviewed the patient's lab results. 10/24/25 19:57 10/24/25 19:57 Labs: Lab Results 10/24/25 10/24/25 Range/Units 19:57 21:16 WBC 9.3 (4.8-10.8) X10*3/uL RBC 3.87 L (4.60-5.80) X10*6/uL Hgb 13.5 L (14.0-18.0) g/dl Hct 39.5 L (42.0-52.0) % MCV 102.1 H (80.0-98.0) fL MCH 34.9 H (27.0-33.0) pg MCHC 34.2 (31.0-36.0) g/dl RDW 14.0 (11.0-16.0) % Plt Count 203 (160-400) X10*3/uL MPV 9.4 (9.4-12.4) fL Immature Gran % (Auto) 0.5 H (0.0-0.4) % Neut % (Auto) 41.8 L (45-73) % Lymph % (Auto) 42.9 H (20-40) % Elmore % (Auto) 10.2 (2-11) % Eos % (Auto) 4.3 H (0-4) % Baso % (Auto) 0.3 (0-2) % Lymph # (Auto) 4.0 (1.2-4.9) X10*3/uL Elmore # (Auto) 1.0 (0.1-1.2) X10*3/uL Eos # (Auto) 0.4 (0.0-0.4) X10*3/uL Baso # (Auto) 0.0 (0.0-0.2) X10*3/uL Abs Immat Gran (auto) 0.05 H (0.00-0.03) X10*3/uL Absolute Neuts (auto) 3.9 (2.0-8.3) x10*3/uL Absolute Nucleated RBC 0.000 (0.0-0.012) X10*3/uL Nucleated RBC % (auto) 0.0 (0.0-0.2) /100WBC Sodium 136 (135-145) mmol/L Potassium 4.1 (3.3-5.1) mmol/L Chloride 104 (96-108) mmol/L Carbon Dioxide 21 L (22-29) mmol/L Anion Gap 15 (12-20) BUN 11 (9-16) mg/dL Creatinine 0.74 (0.5-1.4) mg/dL Estim Creat Clear Calc 94.2 Estimated GFR > 60 Random Glucose 96 (60-115) mg/dL Calcium 9.1 (8.4-10.2) mg/dL Total Bilirubin 0.7 (0.0-1.0) mg/dL Direct Bilirubin 0.3 (0.0-0.5) mg/dL AST 45 H (5-37) U/L ALT 38 (0-40) U/L Alkaline Phosphatase 127 H (39-117) U/L Total Protein 7.5 (6.5-8.0) g/dL Albumin 4.2 (3.5-5.0) g/dL Urine Opiates Screen Not Detected (Not Detect) Ur Buprenorphine Scrn Not Detected (Not Detect) ng/mL Ur Oxycodone Screen Not Detected (Not Detect) ng/mL Urine Methadone Screen Not Detected (Not Detect) ng/mL Urine Fentanyl Screen Not Detected (Not Detect) Ur Barbiturates Screen Not Detected (Not Detect) Ur Phencyclidine Scrn Not Detected (Not Detect) Ur Amphetamines Screen Not Detected (Not Detect) U Benzodiazepines Scrn POSITIVE H (Not Detect) Urine Cocaine Screen Not Detected (Not Detect) U Marijuana (THC) Screen POSITIVE H (Not Detect) Ethyl Alcohol 190 mg/dL Discharge Plan Discharge Clinical Impression: Alcohol dependence Qualifiers: Substance use status: uncomplicated Qualified Code(s): F10.20 - Alcohol dependence, uncomplicated Patient Disposition: Home, Self-Care Instructions: Alcohol Dependence (ED), Alcohol Use Disorder (ED) Additional Instructions: Thank you for choosing [facility]'s Emergency Department for your care today. Thankfully your laboratory evaluation, physical exam, and vital signs today are reassuring. At this time there is no indication for admission to the hospital or continued ED observation, and it is safe to discharge you home. You were seen by the recovery team and provided resources for outpatient detoxification resources in the area. A consult has been placed for you for the comprehensive care team. You should receive a phone call tomorrow to discuss treatment options. Please also follow up with your primary care physician for re-evaluation, additional management of your symptoms, and continued preventative care. Please return to the emergency department if you develop a severe or sudden change in your symptoms, a fever over 100.4 that does not improve with Tylenol or Ibuprofen, recurrent vomiting, or any other new or worsening symptoms or concerns. Prescriptions: No Action amlodipine 10 mg tablet 10 mg PO DAILY Qty: 90 1RF lisinopril 10 mg tablet 10 mg PO DAILY Qty: 90 1RF atenolol 50 mg tablet 50 mg PO DAILY 90 Days Qty: 90 1RF gabapentin 600 mg tablet 600 mg PO TID 30 Days Qty: 90 5RF atorvastatin [Lipitor] 20 mg tablet 20 mg PO BEDTIME Qty: 90 0RF Referrals: Steve Gaffney FNP-[facility] [Primary Care Provider, Internal Medicine] Clinical Impression: Alcohol dependence Print Language: Danish
[2025-10-24 20:03] LABS: MANUAL DIFF FLAG NO
[2025-10-24 20:23] LABS: Hematocrit 39.5 % (42.0-52.0); Hemoglobin 13.5 g/dl (14.0-18.0); Imm Gran Abs Auto 0.05 X10*3/uL (0.00-0.03); Imm Gran Pct Auto 0.5 % (0.0-0.4); Lymphocytes Absolute Auto 4.0 X10*3/uL (1.2-4.9); Mean Corpuscular HGB Conc 34.2 g/dl (31.0-36.0); Mean Corpuscular Hemoglobin 34.9 pg (27.0-33.0); Mean Corpuscular Volume 102.1 fL (80.0-98.0); NRBC Abs Auto 0.000 X10*3/uL (0.0-0.012); NRBC Pct Auto 0.0 /100WBC (0.0-0.2); Platelet Count 203 X10*3/uL (160-400); Red Blood Count 3.87 X10*6/uL (4.60-5.80); White Blood Count 9.3 X10*3/uL (4.8-10.8)
[2025-10-24 20:34] LABS: Alanine Aminotransferase 38 U/L (0-40); Albumin Level 4.2 g/dL (3.5-5.0); Alkaline Phosphatase 127 U/L (39-117); Anion Gap 15 (12-20); Aspartate Amino Transferase 45 U/L (5-37); Blood Urea Nitrogen 11 mg/dL (9-16); Calcium 9.1 mg/dL (8.4-10.2); Carbon Dioxide 21 mmol/L (22-29); Chloride 104 mmol/L (96-108); Creatinine Clr Calc Pharmacy 94.2; Estimated Glomerular Filt Rate > 60; Potassium 4.1 mmol/L (3.3-5.1); Sodium 136 mmol/L (135-145); Total Protein 7.5 g/dL (6.5-8.0)
[2025-10-24 21:32] LABS: Cannabinoid Screen Urine POSITIVE (Not Detect)
[2025-10-24 21:49] VITALS: BP 100/58; PULSE 59; RESP 12; TEMP 36.9; O2SAT 95
[2025-10-24 21:57] VITALS: BP 100/58; PULSE 59; RESP 12; TEMP 36.9; O2SAT 95
== END 2025-10-24 22:10 | disposition home or self-care (01) ==
PROVIDERS: Nurse Practitioner; Emergency Provider Emergency Medicine; PCP Nurse Practitioner Family
DX: F10.20 Alcohol dependence, uncomplicated (principal); Y90.6 Blood alcohol level of 120-199 mg/100 ml; I10 Essential (primary) hypertension; F17.210 Nicotine dependence, cigarettes, uncomplicated; Z79.02 Long term (current) use of antithrombotics/antiplatelets; Z79.899 Other long term (current) drug therapy
CPT/HCPCS: 36415; 80053; 80307; 82248; 85025; 99284; S9485